=== PATIENT | male | born 1980 | race Caucasian/White ===

== ENCOUNTER 2022-10-25 14:56 | Emergency (ER) | payer MEDICARE, SELFPAY ==
[2022-10-25 15:05] VITALS: BP 130/97; PULSE 88; RESP 16; TEMP 37.1; O2SAT 98
--- NOTE | 2022-10-25 15:30 | DI.RAD_ITS ---
Exam(s) XR CLAVICLE RT XR SHOULDER RT COMPLETE 2+V EXAM: XR CLAVICLE RT CLINICAL HISTORY: fall, pain TECHNIQUE: 2D digital imaging was performed. COMPARISON: Two views of the clavicle. Five views of the shoulder. CR,XR XR SHOULDER RT COMPLETE 2 +V from 10/25/2022 FINDINGS: BONES: No acute fracture is present. No bony destructive lesion is seen. JOINTS: No dislocation present. AC joint not widened. SOFT TISSUE: Normal left. Lungs clear. No pneumothorax visible. IMPRESSION: Unremarkable radiographs of the right clavicle and right shoulder. DATA REPOSITORY: RADIATION DOSE DELIVERED:
--- NOTE | 2022-10-25 15:30 | DI.RAD_ITS ---
Exam(s) XR ELBOW RT COMPLETE EXAM: XR ELBOW RT COMPLETE CLINICAL HISTORY: fall pain. TECHNIQUE: 2D digital imaging was performed. Three views. COMPARISON: No exams were available for comparison FINDINGS: BONES: No acute fracture is present. No bony destructive lesion is seen. JOINTS: The elbow is normally aligned. No joint effusion is seen. SOFT TISSUE: Posterior soft tissue swelling. IMPRESSION: Unremarkable radiographs of the right elbow. DATA REPOSITORY: RADIATION DOSE DELIVERED:
--- NOTE | 2022-10-25 15:42 | ED.GENADUL_ITS ---
Discharge Plan Disposition Patient Disposition: Home Condition: Stable Discharge Details Chief Complaint: Orthopedic Clinical Impression: Right shoulder injury, Injury of elbow Primary Care Provider: Unknown,Unknown ED Provider: Zach Samaniego Home Meds and New Rx's Prescriptions: No Action divalproex [Depakote] 500 mg Tablet,Delayed Release (Dr/Ec) 1,500 mg PO BID hydroxyzine HCl 50 mg Tablet 50 mg PO HS Discharge Instructions Instructions: Shoulder Pain (ED) Additional Instructions: Please follow-up with orthopedic team. Please return to the emergency department for any worsening symptoms Medical Decision Making 42-year-old male presents 2 days after injuring right shoulder and elbow while playing with his nephew. Neurovascular exam of limb intact. No external signs of trauma. Range of motion at shoulder and elbow intact. High clinical suspicion for sprain versus strain versus partial rotator cuff tear low suspicion for dislocation or fracture however given level of discomfort will obtain x-rays of elbow shoulder and clavicle. Trial of analgesia anti- inflammatory. Likely will be given orthopedic follow-up 17: 01 x-rays unremarkable. Patient rest comfortably no acute distress. Will give patient close follow-up with orthopedic team in the coming weeks. Home care instructions and return precautions given HPI General Date/Time Provider Initiated Documentation: 10/25/22 15:21 . HPI Narrative: 42-year-old male history of remote right shoulder/clavicle injury presents after injuring right shoulder while playing with his nephew 2 days ago. Fell slowly backwards in a playful manner onto his right elbow and right shoulder has had right elbow and right shoulder pain since then. Related Data Home Medications Medication Instructions Recorded Confirmed divalproex 500 mg tablet,delayed 1,500 mg PO BID 10/25/22 10/25/22 release (Depakote) hydroxyzine HCl 50 mg tablet 50 mg PO HS 10/25/22 10/25/22 Allergies Allergy/AdvReac Type Severity Reaction Status Date / Time No Known Allergies Allergy Unverified 10/25/22 15:14 General Stated Complaint: Orthopedic MARVEL: 4 Review of Systems Narrative: Review of Systems Constitutional: negative Eyes: negative ENT: negative Cardiovascular: negative Respiratory: negative Gastrointestinal: negative : negative Musculoskeletal: Arm pain Skin: negative Neurologic: negative Psych: negative PFSH All Active Problems (Updated 10/25/22 @ 17:03 by Zach Samaniego MD) Right shoulder injury (Acute) Injury of elbow (Acute) Social History Smoking/Tobacco Use Status: Current every day Smoking risk assessment performed?: Yes Alcohol Intake: current Alcohol Intake frequency: a few times a month Drug use: Occasionally Substance use type: marijuana Do you feel safe at home: Yes Do you feel safe in your relationship?: Yes Exam Narrative Exam Narrative: Physical Examination General: alert, awake, cooperative, resting comfortably, no acute distress HEENT: normocephalic, atraumatic; PERRL, EOM intact, conjunctiva normal; no nasal discharge; moist mucous membranes, oral and pharyngeal mucosa normal, tolerating secretions Neck: supple, trachea midline; full ROM Chest: normal to inspection Skin: no lesions, rashes or trauma appreciated Neuro: AAOx3, normal speech, moving all extremities Extremities: No external signs of deformity to right upper extremity, internal/external rotation of shoulder intact, flexion extension at elbow intact, warm well perfused extremity sensate, no step-off or crepitus, normal palpation of clavicle Psych: Appropriate mood and affect Course Vital Signs Vital signs: Vital Signs Temperature 37.1 C 10/25/22 15:05 Pulse 88 10/25/22 15:05 Respiratory Rate 16 10/25/22 15:05 Blood Pressure 130/97 H 10/25/22 15:05 Pulse Oximetry 98 10/25/22 15:05 Temperature 37.1 C 10/25/22 15:05 Temperature Source Skin 10/25/22 15:05 Pulse 88 10/25/22 15:05 Respiratory Rate 16 10/25/22 15:05 Respiratory Effort Non-Labored 10/25/22 15:17 Blood Pressure 130/97 H 10/25/22 15:05 Blood Pressure Position Sitting 10/25/22 15:05 Pulse Oximetry 98 10/25/22 15:05 Oxygen Delivery Method Room Air 10/25/22 15:05 Oxygen Flow Rate 0 10/25/22 15:05 Pain Level 7 10/25/22 15:05 PAWSS Have you Been Recently Intoxicated or Drunk Within the Last 30 days?: No Have you Ever Experienced Previous Episodes of Alcohol Withdrawal?: No Have you ever Experienced Withdrawal Seizures?: No Have you ever Experienced Delirium Tremens(DT)s?: No Have you ever undergone Alcohol Rehabilitation Treatment (i.e, inpt ot outpatient treatment programs)?: No Have you ever Experienced Blackouts?: No Have you ever Combined Alcohol with other Downers within the last 90 days?: No Have you ever Combined Alcohol with any other Substance of Abuse during the last 90 days?: No Positive Blood Alcohol level on Presentation? [PCS.BAL]: No Evidence of Increased Autonomic Activity (i.e. HR>120, tremor, sweating, agitation, nausea)?: No Result: 0
[2022-10-25] MEDS: Ketorolac 15 MG/ML VIAL IM (15:56)
--- NOTE | 2022-10-25 16:35 | DI.VRAD_ITS ---
PROCEDURE INFORMATION: Exam: XR Right Elbow Exam date and time: 10/25/2022 4:12 PM Age: 42 years old Clinical indication: Injury or trauma; Fall; Blunt trauma (contusions or hematomas); Elbow; Right TECHNIQUE: Imaging protocol: Radiologic exam of the right elbow. Views: 3 or more views. COMPARISON: CR XR SHOULDER RT COMPLETE 2+V 10/25/2022 4:08 PM FINDINGS: Bones/joints: Normal. Soft tissues: Normal. IMPRESSION: No acute findings. Dictated and Authenticated by: Kirill Cuenca MD. Ordering:JESSA Serrano MD
--- NOTE | 2022-10-25 16:36 | DI.VRAD_ITS ---
PROCEDURE INFORMATION: Exam: XR Right Clavicle, Complete Exam date and time: 10/25/2022 4:07 PM Age: 42 years old Clinical indication: Injury or trauma; Fall; Sprain or strain; Elbow; Right TECHNIQUE: Imaging protocol: Radiologic exam of the right clavicle. Complete exam. Views: Any number of views. COMPARISON: No relevant prior studies available. FINDINGS: Bones/joints: Normal. Soft tissues: Unremarkable. IMPRESSION: No acute findings. Dictated and Authenticated by: Kirill Cuenca MD. Ordering:JESSA Serrano MD
--- NOTE | 2022-10-25 16:36 | DI.VRAD_ITS ---
PROCEDURE INFORMATION: Exam: XR Right Shoulder Exam date and time: 10/25/2022 4:08 PM Age: 42 years old Clinical indication: Injury or trauma; Fall; Blunt trauma (contusions or hematomas); Shoulder; Right TECHNIQUE: Imaging protocol: Radiologic exam of the right shoulder. Views: 2 or more views. COMPARISON: CR XR CLAVICLE RT 10/25/2022 4:07 PM FINDINGS: Bones/joints: Normal. Soft tissues: Unremarkable. IMPRESSION: No acute findings. Dictated and Authenticated by: Kirill Cuenca MD. Ordering:JESSA Serrano MD
== END 2022-10-25 17:26 | disposition home or self-care (01) ==
PROVIDERS: Emergency Provider Emergency Medicine; PCP Hospitalist
DX: S49.81XA Other specified injuries of right shoulder and upper arm, initial encounter (principal); S59.801A Other specified injuries of right elbow, initial encounter; W19.XXXA Unspecified fall, initial encounter
CPT/HCPCS: 96372; 99284; 73000; 73030; 73080; 99283; J1885

== ENCOUNTER 2022-10-27 12:48 | Emergency (ER) | payer MEDICARE, SELFPAY ==
[2022-10-27 13:10] VITALS: BP 134/84; PULSE 69; RESP 14; TEMP 36.8; O2SAT 98
--- NOTE | 2022-10-27 14:03 | W.ED.GENAD ---
Discharge Plan Disposition Patient Disposition: Home Condition: Stable Discharge Details Clinical Impression: Depression Primary Care Provider: [facility] Provider: Zach Samaniego Home Meds and New Rx's Prescriptions: New divalproex 250 mg tablet,delayed release (DR/EC) 250 mg PO BID Qty: 60 0RF escitalopram oxalate 5 mg tablet 5 mg PO DAILY Qty: 30 0RF hydroxyzine HCl 25 mg tablet 25 mg PO QHS Qty: 30 0RF olanzapine 7.5 mg tablet 7.5 mg PO DAILY Qty: 30 0RF No Action olanzapine 7.5 mg Tablet 7.5 mg PO DAILY escitalopram oxalate 5 mg Tablet 5 mg PO DAILY divalproex [Depakote] 500 mg Tablet,Delayed Release (Dr/Ec) 250 mg PO BID hydroxyzine HCl 50 mg Tablet 25 mg PO HS Discharge Instructions Instructions: Depression (ED) Additional Instructions: Please follow-up closely with [facility] human services resources. If you are not having worsening or uncontrolled symptoms please return to the emergency department for further care Medical Decision Making 42-year-old male history of depression anxiety presents with worsening depression and anxiety over the past several weeks to months, in the setting of not having access to his medications. Recently moved here from [place] is staying with family. Feels safe. Denies SI or HI. No evidence of intoxication or trauma or infectious process. Hemodynamically stable. Offered patient counseling with [facility] services while he is here in the emergency department however he would feel more comfortable following up as an outpatient. We will arrange services. Given strict return precautions for any worsening symptoms. HPI General Date/Time Provider Initiated Documentation: 10/27/22 13:55. HPI Narrative: 42-year-old male history of depression, anxiety, presents with worsening depression and anxiety over the last several weeks, has been without his medications over the last month since he moved from [place]. Denies active suicidal or homicidal thoughts. Feels safe currently and is staying with family. Related Data Home Medications Medication Instructions Recorded Confirmed divalproex 500 mg tablet,delayed 250 mg PO BID 10/25/22 10/27/22 release (Depakote) hydroxyzine HCl 50 mg tablet 25 mg PO HS 10/25/22 10/27/22 divalproex 250 mg tablet,delayed 250 mg PO BID #60 tabs 10/27/22 release escitalopram oxalate 5 mg tablet 5 mg PO DAILY 10/27/22 10/27/22 escitalopram oxalate 5 mg tablet 5 mg PO DAILY #30 tabs 10/27/22 hydroxyzine HCl 25 mg tablet 25 mg PO QHS #30 tabs 10/27/22 olanzapine 7.5 mg tablet 7.5 mg PO DAILY 10/27/22 10/27/22 olanzapine 7.5 mg tablet 7.5 mg PO DAILY #30 tabs 10/27/22 Previous Rx's Medication Instructions Recorded divalproex 250 mg tablet,delayed 250 mg PO BID #60 tabs 10/27/22 release escitalopram oxalate 5 mg tablet 5 mg PO DAILY #30 tabs 10/27/22 hydroxyzine HCl 25 mg tablet 25 mg PO QHS #30 tabs 10/27/22 olanzapine 7.5 mg tablet 7.5 mg PO DAILY #30 tabs 10/27/22 Allergies Allergy/AdvReac Type Severity Reaction Status Date / Time No Known Allergies Allergy Unverified 10/27/22 13:14 General Stated Complaint: RX Refill MARVEL: 4 Review of Systems Narrative: Review of Systems Constitutional: negative Eyes: negative ENT: negative Cardiovascular: negative Respiratory: negative Gastrointestinal: negative : negative Musculoskeletal: negative Skin: negative Neurologic: negative Psych: Depression, anxiety PFSH All Active Problems (Updated 10/27/22 @ 14:07 by Zach Samaniego MD) Right shoulder injury (Acute) Injury of elbow (Acute) Depression (Chronic) Social History Smoking/Tobacco Use Status: Current every day Tobacco Type: cigarettes Smoking risk assessment performed?: Yes Alcohol Intake: current Alcohol Intake frequency: a few times a month Drug use: Occasionally Substance use type: marijuana Do you feel safe at home: Yes Do you feel safe in your relationship?: Yes Exam Narrative Exam Narrative: Physical Examination General: alert, awake, cooperative, resting comfortably, no acute distress Neuro: AAOx3, normal speech, moving all extremities Psych: Depression, anxiety, no HI no SI Course Vital Signs Vital signs: Vital Signs Temperature 36.8 C 10/27/22 13:10 Pulse 69 10/27/22 13:10 Respiratory Rate 14 10/27/22 13:10 Blood Pressure 134/84 10/27/22 13:10 Pulse Oximetry 98 10/27/22 13:10 Temperature 36.8 C 10/27/22 13:10 Temperature Source Temporal Artery Scan 10/27/22 13:10 Pulse 69 10/27/22 13:10 Respiratory Rate 14 10/27/22 13:10 Respiratory Effort Normal 10/27/22 13:13 Blood Pressure 134/84 10/27/22 13:10 Blood Pressure Position Sitting 10/27/22 13:10 Pulse Oximetry 98 10/27/22 13:10 Oxygen Delivery Method Room Air 10/27/22 13:10 Oxygen Flow Rate 0 10/27/22 13:10 Pain Level 0 10/27/22 13:10
[2022-10-27] MEDS: Divalproex 250 MG TABEC PO (14:59)
[2022-10-27] MEDS: Escitalopram 10 MG TAB 5 MG PO (14:59)
[2022-10-27] MEDS: hydrOXYzine HCL 25 MG TAB PO (14:59)
--- NOTE | 2022-10-28 12:06 | PDOC.MHCN ---
Date of service: 10/27/22 Time of Service: 12:06 PHQ-9 Over the last 2 weeks, how often have you been bothered by any of the following problems? 1. Little interest or pleasure in doing things: several days 2. Feeling down, depressed, or hopeless: nearly every day 3. Trouble falling or staying asleep, or sleeping too much: several days 4. Feeling tired or having little energy: not at all 5. Poor appetite or overeating: not at all 6. Feeling bad about yourself - or that you are a failure or have let yourself and your family down: several days 7. Trouble concentrating on things, such as reading the newspaper or watching television: not at all 8. Moving or speaking so slowly that other people could have noticed? - Or the opposite - being so fidgety or restless that you have been moving around a lot more than usual: several days 9. Thoughts that you would be better off or of hurting yourself in some way: several days Total score: 8 If you checked off any problems, how difficult have these problems made it for you to do your work, take care of things at home, or get along with other people?: not difficult at all Source: Developed by Drs. Edward Valladares, Smiley Clark, See Jones and colleagues, with an educational sarah from [email or web address]. Suicide Severity Rate CSSRS Have you wished you were or wished you could go to sleep and not wake up?: Yes Have you actually had any thoughts of killing yourself?: No CSSRS3 Have you ever done anything, started to do anything or prepared to do anything to end your life?: Yes CSSRS4 Was this within the past three months?: No Screening Score Total Score: 4 Screening: Positive Mental Health Emergency Note Release [facility] release signed:: Yes Reason for Visit ES was requested to do an assessment and support client by [facility]. This clinician went to [facility] to meet with the client face to face. [facility] reported that the client is not endorsing SI or HI but is tearful and mat need some extra support In the last 2 weeks has the pt presented for ES prior to today?: Yes, presented at [facility] ED Client Information Client is: New Well Housed: Yes Non Suicidal Self Injury Current: No History: No Safety Risk/Harm to Self or Others Current Ideation to Harm Self or Others: No Risk: Does risk to harm exist?: No Risk: Low Risk Duty to warn indicated: No Asssessment/Mental Status Appearance: Disheveled Attitude: Cooperative Behavior: Unremarkable Speech: Soft Affect: Flat and Cogruent with mood Mood: Sad, Depressed and Anxious Thought process: Goal directed (I want to get my MH better before I turn myself in to police. ) Hallucinations: No Delusions: No Attention: Unremarkable Perception: Not impaired Orientation: Fully orientated Memory: Intact Insight: Good Judgement: Good Neurovegetative Symptoms Sleep: Decrease Appetitie: No change Interests: Decrease Energy: Decrease Libido: Not applicable Substance Use: Do you use nicotine?: Yes Have you used substances in the last 7 days?: yes, THC daily Additional Issues: Assaultive/Threatening Behavior: No Medical Concerns: No Client engaged in active self harm w/weapon: No Threatening to run away: No Child reported abuse/neglect: No Voluntarily presenting for services: Yes Domestic violence is a concern: No Extreme Psychosis or extreme behavior is present: No Impression Client is a 42 year old, Single, male how resides with his mother in [facility]. He is disabled and does not have any professional supports. He did report that he has a paper at home to get into a PCP office however, had to date not filled it in as of yet. Client presents with symptoms as identified above that are consistent with a MDD. He is reported to have been on and off tearful about his current situation. Client would benefit from having services closer to where he lives and this clinician will help support him in doing this as long as he calls with the PCP office information on 10.28.22 and calls will be made. Resources Reosurces reviewed and given:: Other Plan/Disposition Recommended Disposition: PCP/Office visit. Plan: Client was given [facility] card to call on 10.28.22 with PCP information and to give verbal consent to speak. ER provider, Dr. Samaniego will proscribe one month of meds to hold him over. Person reported agreement to plan: Yes Reports/communication Outcome discussed with: ED/Personnel
== END 2022-10-27 16:24 | disposition home or self-care (01) ==
PROVIDERS: Emergency Provider Emergency Medicine
DX: F43.23 Adjustment disorder with mixed anxiety and depressed mood
CPT/HCPCS: 99283; 99284

== ENCOUNTER 2022-11-15 13:34 | Emergency (ER) | payer MEDICARE, SELFPAY ==
[2022-11-15 13:40] VITALS: BP 141/84; PULSE 57; RESP 14; TEMP 36.6; O2SAT 97
--- NOTE | 2022-11-15 13:56 | ED.GENADUL_ITS ---
Discharge Plan Disposition Patient Disposition: Home Discharge Details Clinical Impression: Medication refill Primary Care Provider: None,None ED Provider: Praful Ayers Home Meds and New Rx's Prescriptions: New divalproex [Depakote] 250 mg tablet,delayed release (DR/EC) 750 mg PO BID 30 Days Qty: 180 1RF Continued hydroxyzine HCl 50 mg Tablet 25 mg PO HS Qty: 30 1RF olanzapine 7.5 mg tablet 7.5 mg PO DAILY Qty: 30 0RF escitalopram oxalate 5 mg tablet 5 mg PO DAILY Qty: 30 0RF Discontinued divalproex 250 mg tablet,delayed release (DR/EC) 250 mg PO BID Qty: 60 0RF divalproex [Depakote] 500 mg Tablet,Delayed Release (Dr/Ec) 250 mg PO BID Discharge Instructions Instructions: Divalproex (By mouth) Additional Instructions: You were seen in the emergency department requesting a medication refill. We have requested this for you. You should continue to reach out with the resources provided to get set up with a primary care doctor soon as possible to help with medication refills. We sent a Depakote level for you and refilled your prescriptions. Follow-up with your new primary care doctor regarding your Depakote level to see if they need to make adjustments to your medications. Return here for any symptoms or any thoughts of hurting yourself or anyone else. Discharge Data Discharge Physician: Praful Ayers Medical Decision Making This is a 42-year-old male who presents requesting medication refill. Had the meds filled for him a few weeks ago but has been taking 3 times the prescribed dose of Depakote as he says he is on 750 mg twice a day and not the 250 mg twice a day that was prescribed to him. He is requesting I refill these for him now. Says he has not been able to get in with a primary care doctor. We filled out the paperwork for him here at the request of the primary care doctor. He is agreeable to getting a Depakote level checked here as he should have it checked as it sounds like he was only on it for a couple months before he came here and I do not have any documentation of any levels. He is adamant he was on the 750 mg twice a day for many months. We will send the level so that his primary care doctor has something to further follow-up when he does get in with 1. We will refill his prescriptions here. Offered to let him see the crisis team here but he would like to leave. No role to stay for lab results as the Depakote level will take some time and will not international exchange coordinator presently. We will refill his prescriptions and discharge with return precautions. Medical Records Medical records reviewed: Yes I reviewed the patient's medical records. Lab Data Lab results reviewed: Yes I reviewed the patient's lab results. HPI General Date/Time Provider Initiated Documentation: 11/15/22 13:45 . Limitations to Documentation: no limitations . Information obtained by: patient . HPI Narrative: 42-year-old gentleman presents with request for medication refill. He was here a few weeks ago and given his home medications prescribed to him as he had gotten a primary care doctor in the area recently. He is on Depakote, escitalopram, hydroxyzine, and olanzapine. He says he was not sure of his initial dose the last time he was here and they had prescribed him 250 mg twice a day. He says he is actually on 750 mg twice a day so he has been taking 3 of those pills twice a day over the last few weeks but now has run out of the medication. Says he has not been able to get in with primary care though he filled out all the forms. He is denying any complaints. No hallucinations or delusions or any suicidal thoughts. No homicidal thoughts and no thoughts of hurting himself or anyone else. Denies drug or alcohol use. Related Data Home Medications Medication Instructions Recorded Confirmed divalproex 250 mg tablet,delayed 750 mg PO BID 30 days #180 tabs 11/15/22 release (Depakote) escitalopram oxalate 5 mg tablet 5 mg PO DAILY #30 tabs 11/15/22 hydroxyzine HCl 50 mg tablet 25 mg PO HS #30 tabs 11/15/22 olanzapine 7.5 mg tablet 7.5 mg PO DAILY #30 tabs 11/15/22 Previous Rx's Medication Instructions Recorded divalproex 250 mg tablet,delayed 750 mg PO BID 30 days #180 tabs 11/15/22 release (Depakote) escitalopram oxalate 5 mg tablet 5 mg PO DAILY #30 tabs 11/15/22 hydroxyzine HCl 50 mg tablet 25 mg PO HS #30 tabs 11/15/22 olanzapine 7.5 mg tablet 7.5 mg PO DAILY #30 tabs 11/15/22 Allergies Allergy/AdvReac Type Severity Reaction Status Date / Time No Known Allergies Allergy Unverified 11/15/22 13:43 General Stated Complaint: RX Refill MARVEL: 5 Review of Systems Constitutional Constitutional: Denies chills, Denies fever(s) and Denies headache(s) Eyes Eyes: Denies change in vision ENT Ears, Nose, Mouth, and Throat: Denies headache(s) and Denies odynophagia Cardiovascular Cardiovascular: Denies chest pain and Denies dyspnea Respiratory Respiratory: Denies dyspnea Gastrointestinal Gastrointestinal: Denies abdominal pain, Denies diarrhea, Denies nausea, Denies odynophagia and Denies vomiting Genitourinary Genitourinary: Denies dysuria Musculoskeletal Musculoskeletal: Denies myalgias Integumentary/Breasts Skin/Breast: Denies changing lesions Neurologic Neurologic: Denies behavioral changes and Denies headache(s) Psychiatric Psychiatric: Denies behavioral changes Endocrine Endocrine: Denies heat intolerance Hematologic/Lymphatic Hematologic/Lymphatic: Denies lymphadenopathy PFSH All Active Problems (Updated 11/15/22 @ 14:02 by Praful Ayers MD) Right shoulder injury (Acute) Injury of elbow (Acute) Depression (Chronic) Medication refill (Acute) Social History Smoking/Tobacco Use Status: Current every day Tobacco Type: cigarettes Smoking risk assessment performed?: Yes Alcohol Intake: current Alcohol Intake frequency: a few times a month Drug use: Occasionally Substance use type: marijuana Do you feel safe at home: Yes Do you feel safe in your relationship?: Yes Exam Const General: cooperative Nutritional Appearance: average body habitus Orientation: alert, awake and oriented x3 HENMT Head: normal to inspection Ears: external ears normal Mouth: moist mucous membranes Eyes Pupils: PERRL EOM: EOM intact bilaterally and No nystagmus Neck Neck: full ROM and no tracheal deviation Chest Chest: normal inspection of the chest Resp Auscultation: clear to auscultation bilaterally Cardio Rate: regular rate Rhythm: regular rhythm GI Inspection: normal to inspection Palpation: soft, no guarding, not rigid and nontender Back/Spine/Pelvis Back: No no CVA tenderness Thoracic/Lumbar Spine: thoracic and lumbar spine normal to inspection Skin General skin exam: no rashes or lesions noted Neuro General: patient alert, patient awake and patient oriented x3 Cranial Nerves: CN's II-XI intact bilaterally, PERRL and no nystagmus Cognition: normal cognition Motor: muscle tone normal throughout and strength 5/5 throughout Sensory Exam: no sensory deficits noted Extrem General: normal to inspection Course Vital Signs Vital signs: Vital Signs Temperature 36.6 C 11/15/22 13:40 Pulse 57 L 11/15/22 13:40 Respiratory Rate 14 11/15/22 13:40 Blood Pressure 141/84 H 11/15/22 13:40 Pulse Oximetry 97 11/15/22 13:40 Temperature 36.6 C 11/15/22 13:40 Temperature Source Tympanic 11/15/22 13:40 Pulse 57 L 11/15/22 13:40 Respiratory Rate 14 11/15/22 13:40 Respiratory Effort Normal, Non-Labored 11/15/22 13:44 Blood Pressure 141/84 H 11/15/22 13:40 Blood Pressure Position Sitting 11/15/22 13:40 Pulse Oximetry 97 11/15/22 13:40 Oxygen Delivery Method Room Air 11/15/22 13:40 Oxygen Flow Rate 0 11/15/22 13:40 Pain Level 0 11/15/22 13:40 PAWSS Have you Been Recently Intoxicated or Drunk Within the Last 30 days?: No Have you Ever Experienced Previous Episodes of Alcohol Withdrawal?: No Have you ever Experienced Withdrawal Seizures?: No Have you ever Experienced Delirium Tremens(DT)s?: No Have you ever undergone Alcohol Rehabilitation Treatment (i.e, inpt ot outpatient treatment programs)?: No Have you ever Experienced Blackouts?: No Have you ever Combined Alcohol with other Downers within the last 90 days?: No Have you ever Combined Alcohol with any other Substance of Abuse during the last 90 days?: No Positive Blood Alcohol level on Presentation? [PCS.BAL]: No Evidence of Increased Autonomic Activity (i.e. HR>120, tremor, sweating, agitation, nausea)?: No Result: 0
[2022-11-15 14:16] LABS: Abs Immature Grans 0.04 10^3/uL (0.0-0.06); Absolute Basophil Count 0.07 10^3/uL (0.0-0.2); Absolute Eosinophil Count 0.17 10^3/uL (0.0-0.7); Absolute Neutrophil Count 4.38 10^3/uL (1.2-6.7); Basophils % 0.9; Eosinophils % 2.2; HCT 46.2 % (40.0-50.0); HGB 15.8 g/dL (13.5-17.5); Immature Grans % 0.5; Lymphocytes % 29.1; MCH 30.6 pg (27.0-33.0); MCHC 34.2 % (32.0-36.0); MCV 90 fL (80-95); MPV 11.2 fL (8.0-11.0); Monocytes % 9.3; Platelet Count 219 10^3/uL (130-400); RBC 5.16 10^6/uL (4.36-5.78); RDW 12.5 % (11.8-14.1); RDW-SD 41.3 fL; WBC 7.56 10^3/uL (4.4-10.8)
--- NOTE | 2022-11-15 14:19 | NUR.NOTE ---
Nursing Note: Sent referral to case management to help patient obtain a PCP at [facility] in [place]. Patient stated to the nurse that he had filed paperwork at [facility] however nobody has reached out to him.
[2022-11-15 14:33] LABS: ALT 20 U/L (16-63); AST 14 U/L (15-37); Albumin 3.9 g/dL (3.4-5.0); Alkaline Phosphatase 95 U/L (46-116); Anion Gap 9.8 mmol/L (3-11); BUN 16 mg/dL (7-18); Bilirubin, Total 0.3 mg/dL (0.2-1.0); CO2 25.2 mmol/L (21.0-32.0); CREATININE 0.9 mg/dL (0.70-1.30); Calcium 8.5 mg/dL (8.5-10.1); Chloride 102 mmol/L (98-107); Estimated GFR 110.73 (mL/min/1.73m2); Glucose 99 mg/dL (74-106); Potassium 4.2 mmol/L (3.5-5.1); Sodium 137 mmol/L (136-145); Total Protein 7.7 g/dL (6.4-8.2)
[2022-11-15 14:36] LABS: VALPROIC ACID < 3 ug/mL
== END 2022-11-15 14:25 | disposition home or self-care (01) ==
PROVIDERS: Emergency Provider Student in an Organized Health Care Education/Training Program
DX: F41.9 Anxiety disorder, unspecified (principal); F32.A Depression, unspecified; Z76.0 Encounter for issue of repeat prescription
CPT/HCPCS: 36415; 80053; 99283; 80164; 85025

== ENCOUNTER 2022-12-28 16:30 | Emergency (ER) | payer MEDICARE, SELFPAY ==
[2022-12-28 16:35] VITALS: BP 136/85; PULSE 65; RESP 18; TEMP 36.8; O2SAT 98
--- NOTE | 2022-12-28 18:14 | W.ED.GENAD ---
Discharge Plan Disposition Patient Disposition: Home Discharge Details Clinical Impression: Depression, Anxiety, Encounter for medication refill Primary Care Provider: None,None ED Provider: Ant Henning Home Meds and New Rx's Prescriptions: Continued divalproex [Depakote] 250 mg tablet,delayed release (DR/EC) 750 mg PO BID 30 Days Qty: 180 1RF hydroxyzine HCl 50 mg Tablet 25 mg PO HS Qty: 30 1RF olanzapine 7.5 mg tablet 7.5 mg PO DAILY Qty: 30 1RF escitalopram oxalate 5 mg tablet 5 mg PO DAILY Qty: 30 1RF Discharge Instructions Instructions: Depression (ED), Anxiety (ED) Additional Instructions: We have refilled your meds and put in for a primary care request to establish new primary care provider to better take care of your medication needs for your bipolar depression and anxiety. If you have any significant worsening of your condition please return to the emergency department immediately for reassessment. Otherwise please follow-up with primary care provider and [facility] as discussed Referrals: [facility] [Outside] - 1 day (For further discussion of care bed) Primary Care Provider [Outside] - 2 weeks Medical Decision Making Patient presenting to the emergency department for chief complaint of medication refill request. He states he has been off of his psychiatric medications for the last 2 weeks due to multiple social situations and now is having a hard time sleeping, increased anxiety, and depression. He does state that he has been taking his Depakote and took last dose this morning but all of his other medications he is out of. Patient denies any medical symptoms but states he is does not have a primary care provider or psychiatric provider. He states history of anxiety depression and bipolar with multiple hospitalizations in the past. Physical exam is unremarkable beyond noted agitated anxious patient that does appear sad and depressed. Given that patient is not connected to any resources currently will contact mental health to connect patient with resources sooner than later and attempts to reduce potential for psychiatric inpatient need. Informed patient that I was happy to refill his psychiatric medications as he has presented with the bottles and I am not concerned for abuse of medications and will place patient on primary care list to follow-up for further medical management. Given patient's history after mental health evaluation patient will do 24-hour checking as he is considering potentially going to the care bed. We will represcribe patient's medications and will have him return to the emergency department for any new or significant worsening of condition. After discussion of diagnosis and plan of care patient has no further needs, questions, or concerns and states clear understanding to return to the emergency department for any worsening symptoms. HPI General Mode of arrival: ambulatory. Date/Time Provider Initiated Documentation: 12/28/22 16:31. Limitations to Documentation: no limitations. Information obtained by: patient and RN notes reviewed. History of Present Illness 42 year old M presents to the emergency department with the chief complaint of Patient requesting medication refill, Patient started experiencing this week(s) (2) Patient did receive the following treatments prior to arrival, none Related Data Home Medications Medication Instructions Recorded Confirmed divalproex 250 mg tablet,delayed 750 mg PO BID 30 days #180 tabs 12/28/22 release (Depakote) escitalopram oxalate 5 mg tablet 5 mg PO DAILY #30 tabs 12/28/22 hydroxyzine HCl 50 mg tablet 25 mg PO HS #30 tabs 12/28/22 olanzapine 7.5 mg tablet 7.5 mg PO DAILY #30 tabs 12/28/22 Previous Rx's Medication Instructions Recorded divalproex 250 mg tablet,delayed 750 mg PO BID 30 days #180 tabs 12/28/22 release (Depakote) escitalopram oxalate 5 mg tablet 5 mg PO DAILY #30 tabs 12/28/22 hydroxyzine HCl 50 mg tablet 25 mg PO HS #30 tabs 12/28/22 olanzapine 7.5 mg tablet 7.5 mg PO DAILY #30 tabs 12/28/22 Allergies Allergy/AdvReac Type Severity Reaction Status Date / Time No Known Allergies Allergy Unverified 11/15/22 13:43 General Stated Complaint: RX Refill MARVEL: 5 Review of Systems Constitutional Constitutional: Denies chills and Denies fever(s) Cardiovascular Cardiovascular: Denies chest pain and Denies dyspnea Respiratory Respiratory: Denies dyspnea Gastrointestinal Gastrointestinal: Denies abdominal pain, Denies nausea and Denies vomiting Psychiatric Psychiatric: Reports as per HPI, Reports abnormal sleep pattern, Reports anxiety, Reports depression, Reports irritability, Reports panic attacks, Denies homicidal ideation and Denies suicidal ideation PFSH All Active Problems (Updated 12/28/22 @ 19:08 by Ant Henning NP) Encounter for medication refill (Acute) Bipolar 2 disorder (Acute) Depression (Chronic) Anxiety (Chronic) Social History Smoking/Tobacco Use Status: Current every day Tobacco Type: cigarettes Smoking risk assessment performed?: Yes Alcohol Intake: current Alcohol Intake frequency: a few times a month Drug use: Occasionally Substance use type: marijuana Do you feel safe at home: Yes Do you feel safe in your relationship?: Yes Exam Const General: cooperative, no acute distress and not ill appearing Orientation: alert, awake and oriented x3 HENMT Mouth: moist mucous membranes Resp Effort & Inspection: normal respiratory effort, able to speak in complete sentences and no respiratory distress Auscultation: clear to auscultation bilaterally Cardio Rate: regular rate Rhythm: regular rhythm Heart Sounds: S1 normal and S2 normal Skin General skin exam: no rashes or lesions noted Neuro General: patient alert, patient awake, patient oriented x3, moves all extremities and no focal motor deficits Sensory Exam: no sensory deficits noted Psych Appearance: grossly normal Mental Status: mental status grossly normal Speech and Movement: restless Mood: anxious mood Affect: sad and anxious affect Attitude: cooperative Thought Content: no delusions, no hallucinations, no homicidality, phobias and suicidality Course Vital Signs Vital signs: Vital Signs Temperature 36.8 C 12/28/22 16:35 Pulse 65 12/28/22 16:35 Respiratory Rate 18 12/28/22 16:35 Blood Pressure 136/85 12/28/22 16:35 Pulse Oximetry 98 12/28/22 16:35 Temperature 36.8 C 12/28/22 16:35 Temperature Source Oral 12/28/22 16:35 Pulse 65 12/28/22 16:35 Respiratory Rate 18 12/28/22 16:35 Respiratory Effort Normal, Non-Labored 12/28/22 16:38 Blood Pressure 136/85 12/28/22 16:35 Blood Pressure Position Sitting 12/28/22 16:35 Pulse Oximetry 98 12/28/22 16:35 Oxygen Delivery Method Room Air 12/28/22 16:35 Oxygen Flow Rate 0 12/28/22 16:35
[2022-12-28] MEDS: hydrOXYzine HCL 25 MG TAB 50 MG PO (19:24)
--- NOTE | 2022-12-28 19:27 | NUR.NOTE ---
Pt placed on care management for F/U needed for new PCP for MED control and refill, Pt meds were refilled in the ED by Ed Dr Henning for depression, anxiety, and bipolar.
== END 2022-12-28 19:25 | disposition home or self-care (01) ==
PROVIDERS: Emergency Provider Nurse Practitioner Family
DX: F41.9 Anxiety disorder, unspecified (principal); F32.A Depression, unspecified; Z76.0 Encounter for issue of repeat prescription
CPT/HCPCS: 99283; 99284

== ENCOUNTER 2023-03-24 02:19 | Emergency (ER) | payer MEDICARE, SELFPAY ==
[2023-03-24] VITALS (14 sets, daily range): BP systolic 130–156; BP diastolic 85–98; PULSE 67–85; RESP 20–22; TEMP 36.4; O2SAT 93–100
--- NOTE | 2023-03-24 02:30 | DI.RAD_ITS ---
Exam(s) XR PORTABLE CHEST AP EXAM: XR PORTABLE CHEST AP CLINICAL HISTORY: cough TECHNIQUE: 2D digital imaging was performed. COMPARISON: No exams were available for comparison FINDINGS: LUNGS: Clear. No pleural abnormality seen. HEART: Normal size. AORTA: Normal diameter. BONES: Unremarkable for age. Soft tissues: Unremarkable. IMPRESSION: No acute findings. DATA REPOSITORY: RADIATION DOSE DELIVERED:
--- NOTE | 2023-03-24 02:31 | W.ED.GENAD ---
Discharge Plan Disposition Patient Disposition: Home Condition: Stable Discharge Details Clinical Impression: Viral illness, Subjective fever ED Provider: Adam Ayers Home Meds and New Rx's Prescriptions: Continued divalproex [Depakote] 250 mg tablet,delayed release (DR/EC) 750 mg PO BID 30 Days Qty: 180 0RF hydroxyzine HCl 50 mg Tablet 25 mg PO HS Qty: 30 0RF olanzapine 7.5 mg tablet 7.5 mg PO DAILY Qty: 30 0RF escitalopram oxalate 5 mg tablet 5 mg PO DAILY Qty: 30 0RF Discharge Instructions Instructions: Viral Syndrome (ED) Additional Instructions: I've placed you on the follow up list to try and get established with a primary care provider if you feel more ill, have worsening shortness of breath or severe abdominal pain return to the emergency department Medical Decision Making 42 yo male with hx of anxiety and bipolar who comes in with chief complaint of cough, body aches, n/v for 2 days. HE has also had subjective fevers though he hasn't checked his temp. HE denies chest pain, back pain, urinary symptoms. HE is caox4 on arrival. Clear lungs, no murmurs, soft nontender abdomen, full rom of the neck. No rashes, denies ivdu. Suspect uri vs flu vs covid, will check fluvid, cbc, cmp and proalacitonin along with lactate. He has no murmurs or other findings to suggest endocarditis. 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 Soft nontender abdomen so doubt pathology such as intraabdominal abscess and cholecystitis. No back pain and again denies ivdu so doubt spinal epidural abscess. pt feels better, stable vitals, no hypoxia, hr 80 bp 127/62. Labs reassuring against serious bacterial illness, fluvid negative, suspect viral uri. He is stable for d/c, xray on my read negative, vrad read estimate is 2 hours so do not feel he needs to stay for this. Will have him f/u with his pcp celia, return precautions given. PT denies si/hi and is caox4 with no signs of brinda at this time or other hallucinations. HE is requesting a refill of his meds until he can f/u with his pcp Differential Diagnosis Differential Diagnosis: covid, flu, pneumonia Medical Records Medical records reviewed: Yes I reviewed the patient's medical records. Imaging Data Radiologic Study: Attestation: I personally reviewed and interpreted this imaging study as follows: Imaging: X-Ray My impression: no acute findings Lab Data Lab results reviewed: Yes I reviewed the patient's lab results. HPI General Mode of arrival: EMS. Date/Time Provider Initiated Documentation: 03/24/23 02:25. Limitations to Documentation: no limitations. Information obtained by: patient. History of Present Illness 42 year old M presents to the emergency department with the chief complaint of n/v and body aches, described as moderate, Patient started experiencing this week(s) (2) and it has been constant and intermittent. No relieving factors improve symptom(s), No exacerbating factors reported . Patient notes denies chest pain, rash and syncope. Patient did receive the following treatments prior to arrival, none Related Data Home Medications Medication Instructions Recorded Confirmed divalproex 250 mg tablet,delayed 750 mg PO BID 30 days #180 tabs 03/24/23 release (Depakote) escitalopram oxalate 5 mg tablet 5 mg PO DAILY #30 tabs 03/24/23 hydroxyzine HCl 50 mg tablet 25 mg PO HS #30 tabs 03/24/23 olanzapine 7.5 mg tablet 7.5 mg PO DAILY #30 tabs 03/24/23 Previous Rx's Medication Instructions Recorded divalproex 250 mg tablet,delayed 750 mg PO BID 30 days #180 tabs 03/24/23 release (Depakote) escitalopram oxalate 5 mg tablet 5 mg PO DAILY #30 tabs 03/24/23 hydroxyzine HCl 50 mg tablet 25 mg PO HS #30 tabs 03/24/23 olanzapine 7.5 mg tablet 7.5 mg PO DAILY #30 tabs 03/24/23 Allergies Allergy/AdvReac Type Severity Reaction Status Date / Time No Known Allergies Allergy Unverified 11/15/22 13:43 General Stated Complaint: GenMedical MARVEL: 3 Review of Systems All systems reviewed & are unremarkable except as noted in HPI and below Constitutional Constitutional: Reports chills and Reports fever(s) (subjective) Cardiovascular Cardiovascular: Denies chest pain and Denies dyspnea Respiratory Respiratory: Reports cough and Denies dyspnea Gastrointestinal Gastrointestinal: Denies abdominal pain, Reports nausea and Reports vomiting Genitourinary Genitourinary: Denies dysuria Integumentary/Breasts Skin/Breast: Denies rash PFSH All Active Problems (Updated 03/24/23 @ 03:36 by Adam Ayers MD) Viral illness (Acute) Subjective fever (Acute) Bipolar 2 disorder (Acute) Depression (Chronic) Anxiety (Chronic) Social History Smoking/Tobacco Use Status: Current every day Tobacco Type: cigarettes Smoking risk assessment performed?: Yes Drug use: Occasionally Substance use type: marijuana Do you feel safe at home: Yes Do you feel safe in your relationship?: Yes Exam Const General: no acute distress Orientation: alert HENMT Head: normal to inspection Ears: external ears normal General nose exam: external nose normal Mouth: moist mucous membranes Eyes General: appearance normal, both eyes and all related structures Neck Neck: normal visual inspection Resp Effort & Inspection: normal respiratory effort and able to speak in complete sentences Auscultation: clear to auscultation bilaterally Cardio Rate: regular rate Heart Sounds: no murmurs GI Palpation: soft and nontender Skin General skin exam: no rashes or lesions noted Neuro General: patient alert and patient oriented x3 Extrem General: normal to inspection Psych Mental Status: mental status grossly normal Course Vital Signs Vital signs: Vital Signs Temperature 36.4 C 03/24/23 02:20 Pulse 85 03/24/23 02:20 Respiratory Rate 22 03/24/23 02:20 Blood Pressure 156/93 H 03/24/23 02:20 Pulse Oximetry 100 03/24/23 02:20 Temperature 36.4 C 03/24/23 02:20 Temperature Source Oral 03/24/23 02:20 Pulse 73 03/24/23 02:25 Respiratory Rate 20 03/24/23 02:25 Respiratory Effort Non-Labored 03/24/23 02:25 Respiratory Depth Normal 03/24/23 02:25 Respiratory Pattern Normal 03/24/23 02:25 Blood Pressure 156/93 H 03/24/23 02:25 Blood Pressure Position Sitting 03/24/23 02:25 Pulse Oximetry 99 03/24/23 02:25 Oxygen Delivery Method Room Air 03/24/23 02:25 Oxygen Flow Rate 0 03/24/23 02:20 Pain Level 8 03/24/23 02:25
[2023-03-24 02:33] LABS: Lactate 1.5 mmol/L (0.6-1.4)
[2023-03-24] MEDS: Normal Saline 1,000 ML 1000 ML IV (02:39)
[2023-03-24] MEDS: Ketorolac 15 MG/ML VIAL IVP (02:40)
[2023-03-24] MEDS: Prochlorperazine 10 MG/2 ML VIAL IVP (02:41)
[2023-03-24 02:51] LABS: Abs Immature Grans 0.04 10^3/uL (0.0-0.06); Absolute Basophil Count 0.05 10^3/uL (0.0-0.2); Absolute Eosinophil Count 0.06 10^3/uL (0.0-0.7); Absolute Lymphocyte Count 2.43 10^3/uL (1.2-3.4); Absolute Monocyte Count 0.57 10^3/uL (0.1-0.8); Absolute Neutrophil Count 7.62 10^3/uL (1.2-6.7); Basophils % 0.5; Eosinophils % 0.6; HCT 42.6 % (40.0-50.0); Immature Grans % 0.4; Lymphocytes % 22.6; MCH 30.5 pg (27.0-33.0); MCHC 35.2 % (32.0-36.0); MCV 87 fL (80-95); MPV 10.5 fL (8.0-11.0); Monocytes % 5.3; Neutrophils % 70.6; Platelet Count 341 10^3/uL (130-400); RBC 4.91 10^6/uL (4.36-5.78); RDW 12.9 % (11.8-14.1); RDW-SD 40.9 fL; WBC 10.77 10^3/uL (4.4-10.8)
[2023-03-24 02:53] LABS: ALT 21 U/L (16-63); AST 17 U/L (15-37); Albumin 4.1 g/dL (3.4-5.0); Alkaline Phosphatase 106 U/L (46-116); Anion Gap 11.1 mmol/L (3-11); BUN 9 mg/dL (7-18); Bilirubin, Total 0.3 mg/dL (0.2-1.0); CO2 22.9 mmol/L (21.0-32.0); CREATININE 0.9 mg/dL (0.70-1.30); Calcium 9.3 mg/dL (8.5-10.1); Chloride 103 mmol/L (98-107); Estimated GFR 110.73 (mL/min/1.73m2); Glucose 117 mg/dL (74-106); Magnesium 2.4 mg/dL (1.8-2.4); Potassium 3.9 mmol/L (3.5-5.1); Sodium 137 mmol/L (136-145); Total Protein 8.1 g/dL (6.4-8.2); VALPROIC ACID < 3 ug/mL
[2023-03-24 03:14] LABS: COVID-19 PCR Negative (Negative); Influenza A PCR Negative (Negative); Influenza B PCR Negative (Negative); RSV PCR Negative (Negative)
[2023-03-24 03:23] LABS: Procalcitonin < 0.1 ng/mL
[2023-03-24 03:24] LABS: Source Nasopharynx
--- NOTE | 2023-03-24 03:33 | NUR.NOTE ---
Pt placed on care management list to establish primary care.
--- NOTE | 2023-03-24 05:06 | DI.VRAD_ITS ---
PROCEDURE INFORMATION: Exam: XR Chest Exam date and time: 03/24/2023 2:55 AM Age: 42 years old Clinical indication: Cough TECHNIQUE: Imaging protocol: Radiologic exam of the chest. Views: 1 view. COMPARISON: No relevant prior studies for comparison. FINDINGS: Lungs: The lungs are clear and well aerated bilaterally. There is no consolidation, infiltrate, or pulmonary edema. The pulmonary vasculature is normal in caliber. Pleural spaces: Unremarkable. No pleural effusion or pneumothorax. Heart/Mediastinum: Heart size and cardiomediastinal contours are normal. Bones/joints: Unremarkable. IMPRESSION: No active disease in the chest. Dictated and Authenticated by: Laila Garay MD. Ordering:DESHAWN Medina MD
== END 2023-03-24 03:51 | disposition home or self-care (01) ==
LOC: ER 03:55
PROVIDERS: Emergency Provider Emergency Medicine
DX: B34.9 Viral infection, unspecified (principal); F41.9 Anxiety disorder, unspecified; F31.9 Bipolar disorder, unspecified; F17.210 Nicotine dependence, cigarettes, uncomplicated; Z20.822 Contact with and (suspected) exposure to COVID-19
CPT/HCPCS: 80053; 84145; 87637; 96361; 96374; 96375; 99283; 71045; 80164; 83605; 83735; 85025; J0780; J1885

== ENCOUNTER 2023-05-13 17:36 | Emergency (ER) | payer MEDICARE, SELFPAY ==
[2023-05-13 17:37] VITALS: BP 138/105; PULSE 84; RESP 20; TEMP 36.8; O2SAT 99
--- NOTE | 2023-05-13 17:54 | NUR.NOTE ---
Nursing Note: Pt was wanded by security for safety. Belongings placed in room 1 behavioral health lockers. Pt remains calm and cooperative with process. Pt has food and drink available.
--- NOTE | 2023-05-13 18:05 | W.ED.GENAD ---
Discharge Plan Disposition Patient Disposition: Home Condition: Stable Discharge Details Clinical Impression: Anxiety, Depression Primary Care Provider: Unknown,Unknown ED Provider: Zach Samaniego Home Meds and New Rx's Prescriptions: New olanzapine 7.5 mg tablet 7.5 mg PO DAILY Qty: 30 1RF escitalopram oxalate 5 mg tablet 5 mg PO DAILY Qty: 30 1RF divalproex [Depakote] 250 mg tablet,delayed release (DR/EC) 750 mg PO BID 30 Days Qty: 180 1RF No Action divalproex [Depakote] 250 mg tablet,delayed release (DR/EC) 750 mg PO BID 30 Days Qty: 180 0RF hydroxyzine HCl 50 mg Tablet 25 mg PO HS Qty: 30 0RF olanzapine 7.5 mg tablet 7.5 mg PO DAILY Qty: 30 0RF escitalopram oxalate 5 mg tablet 5 mg PO DAILY Qty: 30 0RF Discharge Instructions Instructions: Depression (ED), Anxiety (ED) Additional Instructions: Please follow-up with [facility], please return to the emergency department for any worsening symptoms. Medical Decision Making 43-year-old male history of bipolar depression, presents with worsening anxiety, depression in the setting of running out of medications, calm cooperative however does appear mildly anxious, tearful. Hemodynamically stable afebrile nontoxic no signs of trauma no signs of intoxication. Patient denies SI HI or hallucinations. No delusional thinking at this time. Patient will benefit from evaluation with [facility] and human services for follow-up care. Will start patient back on his home medications. 19: 47 patient evaluated by [facility]. Was deemed safe for discharge home, will be checking in with [facility] and a care bed will be arranged for him on an outpatient basis. HPI General Date/Time Provider Initiated Documentation: 05/13/23 17:37. HPI Narrative: 43-year-old male history of bipolar, depression presents with anxiety, depression, panic attacks in the setting of running out of his medications. Denies SI denies HI denies hallucinations Related Data Home Medications Medication Instructions Recorded Confirmed divalproex 250 mg tablet,delayed 750 mg (3 x 250 mg) PO BID 30 days 03/24/23 05/13/23 release (Depakote) #180 tabs escitalopram oxalate 5 mg tablet 5 mg PO DAILY #30 tabs 03/24/23 05/13/23 hydroxyzine HCl 50 mg tablet 25 mg (1/2 x 50 mg) PO HS #30 tabs 03/24/23 05/13/23 olanzapine 7.5 mg tablet 7.5 mg PO DAILY #30 tabs 03/24/23 05/13/23 divalproex 250 mg tablet,delayed 750 mg (3 x 250 mg) PO BID 30 days 05/13/23 release (Depakote) #180 tabs escitalopram oxalate 5 mg tablet 5 mg PO DAILY #30 tabs 05/13/23 olanzapine 7.5 mg tablet 7.5 mg PO DAILY #30 tabs 05/13/23 Previous Rx's Medication Instructions Recorded divalproex 250 mg tablet,delayed 750 mg (3 x 250 mg) PO BID 30 days 03/24/23 release (Depakote) #180 tabs escitalopram oxalate 5 mg tablet 5 mg PO DAILY #30 tabs 03/24/23 hydroxyzine HCl 50 mg tablet 25 mg (1/2 x 50 mg) PO HS #30 tabs 03/24/23 olanzapine 7.5 mg tablet 7.5 mg PO DAILY #30 tabs 03/24/23 divalproex 250 mg tablet,delayed 750 mg (3 x 250 mg) PO BID 30 days 05/13/23 release (Depakote) #180 tabs escitalopram oxalate 5 mg tablet 5 mg PO DAILY #30 tabs 05/13/23 olanzapine 7.5 mg tablet 7.5 mg PO DAILY #30 tabs 05/13/23 Allergies Allergy/AdvReac Type Severity Reaction Status Date / Time No Known Allergies Allergy Unverified 05/13/23 17:52 General Stated Complaint: PsychEval MARVEL: 2 Review of Systems Narrative: Review of Systems Constitutional: negative Eyes: negative ENT: negative Cardiovascular: negative Respiratory: negative Gastrointestinal: negative : negative Musculoskeletal: negative Skin: negative Neurologic: negative Psych: Anxiety, panic attacks, depression PFSH All Active Problems (Updated 05/13/23 @ 19:49 by Zach Samaniego MD) Depression (Chronic) Anxiety (Chronic) Bipolar 2 disorder (Acute) Depression (Chronic) Anxiety (Chronic) Social History Smoking/Tobacco Use Status: Current every day Tobacco Type: cigarettes Smoking risk assessment performed?: Yes Drug use: Occasionally Substance use type: marijuana Do you feel safe at home: Yes Do you feel safe in your relationship?: Yes Exam Narrative Exam Narrative: Physical Examination General: alert, awake, cooperative, resting comfortably, no acute distress HEENT: normocephalic, atraumatic; PERRL, EOM intact, conjunctiva normal; no nasal discharge; moist mucous membranes, oral and pharyngeal mucosa normal, tolerating secretions Neck: supple, trachea midline; full ROM Chest: normal to inspection Respiratory: normal respiratory effort, speaking in full sentences Skin: no lesions, rashes or trauma appreciated Neuro: AAOx3, normal speech, moving all extremities Psych: Calm, cooperative, appropriate, does appear anxious and mildly tearful, denies SI denies HI denies hallucinations Course Vital Signs Vital signs: Vital Signs Temperature 36.8 C 05/13/23 17:37 Pulse 84 05/13/23 17:37 Respiratory Rate 20 05/13/23 17:37 Blood Pressure 138/105 H 05/13/23 17:37 Pulse Oximetry 99 05/13/23 17:37 Temperature 36.8 C 05/13/23 17:37 Temperature Source Oral 05/13/23 17:37 Pulse 84 05/13/23 17:37 Respiratory Rate 20 05/13/23 17:37 Respiratory Effort Normal 05/13/23 17:44 Blood Pressure 138/105 H 05/13/23 17:37 Blood Pressure Position Sitting 05/13/23 17:37 Pulse Oximetry 99 05/13/23 17:37 Oxygen Delivery Method Room Air 05/13/23 17:37 Oxygen Flow Rate 0 05/13/23 17:37
[2023-05-13] MEDS: Escitalopram 10 MG TAB 5 MG PO (18:29)
[2023-05-13] MEDS: DIVALPROEX 500 MG, DIVALPROEX 250 MG 750 MG PO (18:30)
--- NOTE | 2023-05-14 01:56 | PDOC.MHCN ---
Date of service: 05/13/23 Time of Service: 18:18 PHQ-9 Over the last 2 weeks, how often have you been bothered by any of the following problems? 1. Little interest or pleasure in doing things: not at all 2. Feeling down, depressed, or hopeless: more than half the days 3. Trouble falling or staying asleep, or sleeping too much: nearly every day 4. Feeling tired or having little energy: not at all 5. Poor appetite or overeating: more than half the days 6. Feeling bad about yourself - or that you are a failure or have let yourself and your family down: not at all 7. Trouble concentrating on things, such as reading the newspaper or watching television: not at all 8. Moving or speaking so slowly that other people could have noticed? - Or the opposite - being so fidgety or restless that you have been moving around a lot more than usual: nearly every day 9. Thoughts that you would be better off or of hurting yourself in some way: several days Total score: 11 If you checked off any problems, how difficult have these problems made it for you to do your work, take care of things at home, or get along with other people?: not difficult at all Source: Developed by Drs. Edward Valladares, Smiley Clark, See Jones and colleagues, with an educational sarah from [email or web address]. Suicide Severity Rate CSSRS Have you wished you were or wished you could go to sleep and not wake up?: Yes Have you actually had any thoughts of killing yourself?: No CSSRS3 Have you ever done anything, started to do anything or prepared to do anything to end your life?: Yes CSSRS4 Was this within the past three months?: No Screening Score Total Score: 4 Screening: Positive Mental Health Emergency Note Release [facility] release signed:: Yes Reason for Visit In the last 2 weeks has the pt presented for ES prior to today?: No Non Suicidal Self Injury Current: No Safety Risk/Harm to Self or Others Current Ideation to Harm Self or Others: No Asssessment/Mental Status Appearance: Unremarkable Attitude: Cooperative Behavior: Unremarkable Speech: Normal Affect: Normal and Cogruent with mood Mood: Sad, Depressed and Anxious Thought process: Unremarkable Hallucinations: No evidence Delusions: No evidence Attention: Unremarkable Perception: Not impaired Orientation: Fully orientated Memory: Intact Insight: Good Judgement: Good Neurovegetative Symptoms Sleep: Decrease Appetitie: No change Interests: Decrease Energy: Decrease Libido: Not applicable Substance Use: Do you use nicotine?: Yes Have you used substances in the last 7 days?: yes, AL- 7 days ago THC-7 days ago Cigarettes- today Impression Client presented into [facility] after having trouble the past few day and having fleeting thoughts of SI. Client's appetite has increased in the last few months causing a weight gain. client's appearance was clean. Client informed this administrative underwriter that he is trying to stop smoking THC and drinking alcohol at this time his last usage for both was a week ago client does currently still smoke cigarettes but is also trying to cut down on that. Client reports that he does not do anything for most of the day and finds himself fidgety and restless and unable to calm his anxiety. Client reports that he is not set up with the primary care physician and has not been taking his medications due to not being able to get a current prescription. At this time client reports that he has no friends and his only support system is his mother and his brother. Client reports that he is depressed and has occasional thoughts of wanting to kill himself but does not have a plan intent to act on these thoughts. Client does have access to means in the form of a knife that he keeps locked up. Plan/Disposition Recommended Disposition: Crisis bed, facility contacted. Status of Crisis Bed acceptance: Pending review. Reports/communication Outcome discussed with: ED/Personnel
== END 2023-05-13 19:57 | disposition home or self-care (01) ==
PROVIDERS: Emergency Provider Emergency Medicine
DX: F41.8 Other specified anxiety disorders; F31.9 Bipolar disorder, unspecified; F41.0 Panic disorder [episodic paroxysmal anxiety]
CPT/HCPCS: 00123; 96127; 99283; 99284

== ENCOUNTER 2023-05-16 12:41 | Emergency (ER) | payer MEDICARE, SELFPAY ==
[2023-05-16 12:43] VITALS: BP 160/95; PULSE 74; RESP 20; TEMP 37.2; O2SAT 99
--- NOTE | 2023-05-16 12:46 | NUR.NOTE ---
Nursing Note: Wardrobe Custodian called and spoke with survey and mapping technician. to confirm if the patients medications were there and ready to be picked up. Confirmed that they are and provider notified.
[2023-05-16] MEDS: hydrOXYzine HCL 25 MG TAB 50 MG PO (13:05)
[2023-05-16] MEDS: OLANZapine 5 MG TAB 7.5 MG PO (13:06)
--- NOTE | 2023-05-16 13:10 | W.ED.GENAD ---
Discharge Plan Disposition Patient Disposition: Home Discharge Details Clinical Impression: Medication refill, Anxiety, Depression Primary Care Provider: Unknown,Unknown ED Provider: Ant Henning Home Meds and New Rx's Prescriptions: Continued olanzapine 7.5 mg tablet 7.5 mg PO DAILY Qty: 30 1RF escitalopram oxalate 5 mg tablet 5 mg PO DAILY Qty: 30 1RF divalproex [Depakote] 250 mg tablet,delayed release (DR/EC) 750 mg PO BID 30 Days Qty: 180 1RF divalproex [Depakote] 250 mg tablet,delayed release (DR/EC) 750 mg PO BID 30 Days Qty: 180 0RF hydroxyzine HCl 50 mg Tablet 25 mg PO HS Qty: 30 0RF olanzapine 7.5 mg tablet 7.5 mg PO DAILY Qty: 30 0RF escitalopram oxalate 5 mg tablet 5 mg PO DAILY Qty: 30 0RF Discharge Instructions Instructions: Depression (ED), Anxiety (ED) Additional Instructions: Please continue to follow-up with [facility] and your normal prescriber of your meds for further refills. We were able to verify that all your meds are available at [facility] and please take as prescribed. If you have any new or significant worsening symptoms feel free to return the emergency department for reassessment otherwise follow-up with your primary care provider as needed. [facility] [[facility] Discharge Data Discharge Date/Time-TO BE ENTERED AT DEPARTURE: 05/16/23 13:19 Medical Decision Making Patient presenting to the emergency department for chief complaint of medication refill. Patient states that he is depressed, not sleeping well, and has been out of his psychiatric meds. He was seen a couple days ago and had his escitalopram and olanzapine prescribed him but the pharmacy told him they would not have the olanzapine for couple days. Patient states he has been taking his other medications but still having some increase of symptoms. Patient states he has been following up with his safety plan and touching base with [facility] as previously arranged, denies any homicidal or suicidal ideations, denies any changes in medical condition. Patient is obviously anxious and does have depressive statements but I do not feel that patient is imminently at risk of self-harm. Was able to call and speak to the pharmacy who now does have patient's medications. He was given his daily medications here prior to discharge and patient states that he will go immediately and supervisor opening and picking his meds otherwise. After discussion of diagnosis and plan of care patient has no further needs, questions, or concerns and states clear understanding to return to the emergency department for any worsening symptoms. This documentation was generated using [employer] system, please disregard any oddities of phrase or misspellings. Medical Records Medical records reviewed: Yes I reviewed the patient's medical records. Medical records narrative: Reviewed previous emergency department visit HPI General Mode of arrival: ambulatory. Date/Time Provider Initiated Documentation: 05/16/23 12:41. Limitations to Documentation: no limitations. Information obtained by: patient, RN notes reviewed and old records reviewed. History of Present Illness 43 year old M presents to the emergency department with the chief complaint of Medication refill, anxiety and depression, Patient started experiencing this week(s) Patient notes no other symptoms.. Patient did receive the following treatments prior to arrival, none Related Data Home Medications Medication Instructions Recorded Confirmed divalproex 250 mg tablet,delayed 750 mg (3 x 250 mg) PO BID 30 days 03/24/23 05/16/23 release (Depakote) #180 tabs escitalopram oxalate 5 mg tablet 5 mg PO DAILY #30 tabs 03/24/23 05/16/23 hydroxyzine HCl 50 mg tablet 25 mg (1/2 x 50 mg) PO HS #30 tabs 03/24/23 05/16/23 olanzapine 7.5 mg tablet 7.5 mg PO DAILY #30 tabs 03/24/23 05/16/23 divalproex 250 mg tablet,delayed 750 mg (3 x 250 mg) PO BID 30 days 05/13/23 05/16/23 release (Depakote) #180 tabs escitalopram oxalate 5 mg tablet 5 mg PO DAILY #30 tabs 05/13/23 05/16/23 olanzapine 7.5 mg tablet 7.5 mg PO DAILY #30 tabs 05/13/23 05/16/23 Previous Rx's Medication Instructions Recorded divalproex 250 mg tablet,delayed 750 mg (3 x 250 mg) PO BID 30 days 03/24/23 release (Depakote) #180 tabs escitalopram oxalate 5 mg tablet 5 mg PO DAILY #30 tabs 03/24/23 hydroxyzine HCl 50 mg tablet 25 mg (1/2 x 50 mg) PO HS #30 tabs 03/24/23 olanzapine 7.5 mg tablet 7.5 mg PO DAILY #30 tabs 03/24/23 divalproex 250 mg tablet,delayed 750 mg (3 x 250 mg) PO BID 30 days 05/13/23 release (Depakote) #180 tabs escitalopram oxalate 5 mg tablet 5 mg PO DAILY #30 tabs 05/13/23 olanzapine 7.5 mg tablet 7.5 mg PO DAILY #30 tabs 05/13/23 Allergies Allergy/AdvReac Type Severity Reaction Status Date / Time No Known Allergies Allergy Unverified 05/16/23 12:51 General Stated Complaint: RX Refill MARVEL: 5 Review of Systems Cardiovascular Cardiovascular: Denies chest pain and Denies dyspnea Respiratory Respiratory: Denies dyspnea Psychiatric Psychiatric: Reports anxiety, Reports depression, Reports hopelessness, Reports panic attacks, Denies homicidal ideation and Denies suicidal ideation PFSH All Active Problems Medication refill (Acute) Depression (Chronic) Anxiety (Chronic) Bipolar 2 disorder (Acute) Depression (Chronic) Anxiety (Chronic) Social History Smoking/Tobacco Use Status: Current every day Tobacco Type: cigarettes Smoking risk assessment performed?: Yes Drug use: Occasionally Substance use type: marijuana Do you feel safe at home: Yes Do you feel safe in your relationship?: Yes Exam Const General: cooperative, no acute distress and not ill appearing Orientation: alert, awake and oriented x3 HENMT Mouth: moist mucous membranes Resp Effort & Inspection: normal respiratory effort, able to speak in complete sentences and no respiratory distress Skin General skin exam: no rashes or lesions noted Neuro General: patient alert, patient awake, patient oriented x3, moves all extremities and no focal motor deficits Course Vital Signs Vital signs: Vital Signs Temperature 37.2 C 05/16/23 12:43 Pulse 74 05/16/23 12:43 Respiratory Rate 20 05/16/23 12:43 Blood Pressure 160/95 H 05/16/23 12:43 Pulse Oximetry 99 05/16/23 12:43 Temperature 37.2 C 05/16/23 12:43 Temperature Source Skin 05/16/23 12:43 Pulse 74 05/16/23 12:43 Respiratory Rate 20 05/16/23 12:43 Blood Pressure 160/95 H 05/16/23 12:43 Blood Pressure Position Sitting 05/16/23 12:43 Pulse Oximetry 99 05/16/23 12:43 Oxygen Delivery Method Room Air 05/16/23 12:43 Oxygen Flow Rate 0 05/16/23 12:43 Pain Level 0 05/16/23 12:43
== END 2023-05-16 13:19 | disposition home or self-care (01) ==
LOC: ER 13:24
PROVIDERS: Emergency Provider Nurse Practitioner Family
DX: F41.8 Other specified anxiety disorders (principal); Z76.0 Encounter for issue of repeat prescription
CPT/HCPCS: 99283; 99284

== ENCOUNTER 2023-06-21 22:20 | Emergency (ER) | payer MEDICARE, SELFPAY ==
[2023-06-21 22:23] VITALS: BP 164/110; PULSE 87; RESP 16; TEMP 36.7; O2SAT 96
--- NOTE | 2023-06-21 22:30 | W.ED.GENAD ---
HPI General Stated Complaint: PsychEval Mode of arrival: EMS. MARVEL: 2 Date/Time Provider Initiated Documentation: 06/21/23 22:29. Limitations to Documentation: no limitations. Information obtained by: patient. HPI Narrative: 43yo M with hx depression & anxiety presenting for medication refill. Reports he ran out of his medications 4-5 days ago and hasn't been able to take them. Has had worsening depression since then, passive thoughts of self harm but no plan. Prior SA via overdose. No plans or intent to overdose today. No HI/AH/VH. He is otherwise in his usual state of health with no physical complaints. Related Data Home Medications Medication Instructions Recorded Confirmed divalproex 250 mg tablet,delayed 750 mg (3 x 250 mg) PO BID 30 days 03/24/23 06/21/23 release (Depakote) #180 tabs escitalopram oxalate 5 mg tablet 5 mg PO DAILY #30 tabs 03/24/23 06/21/23 hydroxyzine HCl 50 mg tablet 25 mg (1/2 x 50 mg) PO HS #30 tabs 03/24/23 06/21/23 olanzapine 7.5 mg tablet 7.5 mg PO DAILY #30 tabs 03/24/23 06/21/23 divalproex 250 mg tablet,delayed 750 mg (3 x 250 mg) PO BID 30 days 05/13/23 06/21/23 release (Depakote) #180 tabs escitalopram oxalate 5 mg tablet 5 mg PO DAILY #30 tabs 05/13/23 06/21/23 olanzapine 7.5 mg tablet 7.5 mg PO DAILY #30 tabs 05/13/23 06/21/23 paliperidone 6 mg tablet,extended mg PO 06/21/23 release 24 hr Previous Rx's Medication Instructions Recorded divalproex 250 mg tablet,delayed 750 mg (3 x 250 mg) PO BID 30 days 03/24/23 release (Depakote) #180 tabs escitalopram oxalate 5 mg tablet 5 mg PO DAILY #30 tabs 03/24/23 hydroxyzine HCl 50 mg tablet 25 mg (1/2 x 50 mg) PO HS #30 tabs 03/24/23 olanzapine 7.5 mg tablet 7.5 mg PO DAILY #30 tabs 03/24/23 divalproex 250 mg tablet,delayed 750 mg (3 x 250 mg) PO BID 30 days 05/13/23 release (Depakote) #180 tabs escitalopram oxalate 5 mg tablet 5 mg PO DAILY #30 tabs 05/13/23 olanzapine 7.5 mg tablet 7.5 mg PO DAILY #30 tabs 05/13/23 Allergies Allergy/AdvReac Type Severity Reaction Status Date / Time No Known Allergies Allergy Unverified 06/21/23 22:32 Review of Systems Narrative: see HPI PFSH All Active Problems (Updated 06/22/23 @ 00:25 by Tami Wilder MD) Medication refill (Acute) Bipolar 2 disorder (Acute) Depression (Chronic) Anxiety (Chronic) Social History Smoking/Tobacco Use Status: Current every day Tobacco Type: cigarettes Smoking risk assessment performed?: Yes Alcohol Intake: current Alcohol Intake frequency: holidays/special occasions only Drug use: Occasionally Substance use type: marijuana Housing: house Do you feel safe at home: Yes Do you feel safe in your relationship?: Yes Exam Narrative Exam Narrative: General: Alert, well appearing, well nourished, in no acute distress. Head: Normocephalic, atraumatic Neck: Trachea midline, ?Neck supple. Cardiac: ?RRR, no murmurs appreciated Resp: No respiratory distress. CTAB. Abd: ?Soft, non-distended, nontender Extremities: ?No deformities.? No peripheral edema. Neurologic: GCS 15. ? Moves all extremities freely against gravity Psych: Calm, cooperative.? Well groomed.? Mood sad, affect congruent.? Speech with normal volume, rate, rythym and tone. Linear and goal directed.? SI with no plan. Denies HI/AH/VH. ? Does not appear to be responding to internal stimuli. Course Vital Signs Vital signs: Vital Signs Temperature 36.7 C 06/21/23 22:23 Pulse 87 06/21/23 22:23 Respiratory Rate 16 06/21/23 22:23 Blood Pressure 164/110 H 06/21/23 22:23 Pulse Oximetry 96 06/21/23 22:23 Temperature 36.7 C 06/21/23 22:23 Temperature Source Oral 06/21/23 22:23 Pulse 87 06/21/23 22:23 Respiratory Rate 16 06/21/23 22:23 Blood Pressure 164/110 H 06/21/23 22:23 Pulse Oximetry 96 06/21/23 22:23 Oxygen Delivery Method Room Air 06/21/23 22:23 Oxygen Flow Rate 0 06/21/23 22:23 Medical Decision Making 43yo M with hx depression & anxiety presenting for medication refill.; reports he ran out of his medications 4-5 days ago and hasn't been able to take them. Had an appointment with his prescriber but had to cancel it as his family was ill. Reports passive SI, no plan, feels safe to go home and states he has good supports. Medications reviewed and he was given a dose of the ones he had missed here in the ED. [facility] spoke with patient, also have no acute concerns for suicidality. [facility] records reviewed and his last visit here was just over 30 days ago for medication refill, he was given a 30 day prescription at that time. He was medicated here. He was instructed to call his prescriber today to followup on this visit and to discuss a bridge prescription until he is able to be seen. I told the patient that the ED cannot continue to manage his routine medications for him and that it is crucial that he follows up with his mental health clinicians. I asked him to check in with [facility] tomorrow as well. He verbalized understanding of these instructions. Discharged home; discharge instructions and return precautions were reviewed with patient who verbalized understanding. All questions were answered and he is in agreement with the plan. Quality:SDOH Health Related Social Needs: No Data to Display Discharge Plan Disposition Patient Disposition: Home Condition: Good Discharge Details Chief Complaint: PsychEval Clinical Impression: Medication refill, Depression Primary Care Provider: Unknown,Unknown ED Provider: Tami Wilder Home Meds and New Rx's Prescriptions: No Action olanzapine 7.5 mg tablet 7.5 mg PO DAILY Qty: 30 1RF escitalopram oxalate 5 mg tablet 5 mg PO DAILY Qty: 30 1RF divalproex [Depakote] 250 mg tablet,delayed release (DR/EC) 750 mg PO BID 30 Days Qty: 180 1RF paliperidone 6 mg tablet extended release 24hr PO divalproex [Depakote] 250 mg tablet,delayed release (DR/EC) 750 mg PO BID 30 Days Qty: 180 0RF hydroxyzine HCl 50 mg Tablet 25 mg PO HS Qty: 30 0RF olanzapine 7.5 mg tablet 7.5 mg PO DAILY Qty: 30 0RF escitalopram oxalate 5 mg tablet 5 mg PO DAILY Qty: 30 0RF Discharge Instructions Instructions: Depression (ED) Additional Instructions: Call your mental health clinician today to ask for refills on your medications. Make sure you schedule and keep your next appointment. Return to the emergency department for new or worsening symptoms including if you have worsening thoughts of self harm or if you feel unsafe.
[2023-06-21] MEDS: Divalproex Sodium 250 MG TAB.ER.24H 750 MG PO (23:36)
[2023-06-21] MEDS: Escitalopram 10 MG TAB 5 MG PO (23:39)
--- NOTE | 2023-06-21 23:49 | PDOC.MHCN_ITS ---
Date of service: 06/21/23 Time of Service: 23:42 Mental Health Emergency Note Release [facility] release signed:: Yes Reason for Visit Adam reports feeling down in the dumps due to being off his medications for the last three to four days. In the last 2 weeks has the pt presented for ES prior to today?: Unknown Client Information Client is: Adult Outpatient Well Housed: Yes Non Suicidal Self Injury Current: No History: No Safety Risk/Harm to Self or Others Current Ideation to Harm Self or Others: No Risk: Does risk to harm exist?: No Risk: N/A Duty to warn indicated: No Asssessment/Mental Status Appearance: Unremarkable Attitude: Cooperative Behavior: Unremarkable Speech: Normal Affect: Cogruent with mood Mood: Stressed, Depressed and Anxious Thought process: Goal directed Hallucinations: No evidence Delusions: No evidence Attention: Unremarkable Perception: Not impaired Orientation: Fully orientated Memory: Intact Insight: Fair Judgement: Fair Neurovegetative Symptoms Sleep: No change Appetitie: No change Interests: No change Energy: No change Libido: Not applicable Substance Use: Do you use nicotine?: No Have you used substances in the last 7 days?: No Additional Issues: Assaultive/Threatening Behavior: No Medical Concerns: No Client engaged in active self harm w/weapon: No Threatening to run away: No Child reported abuse/neglect: No Voluntarily presenting for services: Yes Domestic violence is a concern: No Extreme Psychosis or extreme behavior is present: No Impression Adam presented to [facility] due to missing his medications for the last four days. Adam reports he is feeling down in the dumps due to not being on his meds. Adam reports [facility] gave him his dose of medications and will be writing him a prescription to lemon picker tomorrow. Adam denies SI/HI/NSSI. This magnetic tape typewriter operator discussed with Adam about his two cancelled appointments today - Adam reports his entire family is sick and he did not want to get anyone at the agency sick so he did not come in.? This magnetic tape typewriter operator confirmed with provider, [facility] will write him a script and he will follow up with [facility] on the for his rescheduled appointment. Plan/Disposition Recommended Disposition: [facility] Services (med provider appointment ) [facility] Services: Therapy and Other. Plan: Adam will be discharged with follow up to see [facility] on 07/05/23. Person reported agreement to plan: Yes Reports/communication Outcome discussed with: ED/Personnel
== END 2023-06-22 00:46 | disposition home or self-care (01) ==
PROVIDERS: Emergency Provider Student in an Organized Health Care Education/Training Program
DX: F32.A Depression, unspecified (principal); F41.9 Anxiety disorder, unspecified
CPT/HCPCS: 00123; 99283

== ENCOUNTER 2025-02-03 20:08 | Emergency (ER) | payer MEDICARE, SELFPAY ==
[2025-02-03 20:08] VITALS: BP 157/105; PULSE 78; RESP 18; TEMP 36.8; O2SAT 99
--- NOTE | 2025-02-03 20:26 | W.ED.GENAD ---
Discharge Plan Discharge Details Chief Complaint: PsychEval Clinical Impression: Passive suicidal ideations, Bipolar 2 disorder Primary Care Provider: Unknown,Unknown ED Provider: Leonela Escobedo Home Meds and New Rx's Prescriptions: No Action olanzapine 7.5 mg tablet 7.5 mg PO DAILY Qty: 30 1RF escitalopram oxalate 5 mg tablet 5 mg PO DAILY Qty: 30 1RF divalproex [Depakote] 250 mg tablet,delayed release (DR/EC) 750 mg PO BID 30 Days Qty: 180 1RF paliperidone 6 mg tablet extended release 24hr 6 mg PO Rx Instructions: reports he stopped taking pill and started taking a shot of it every month trazodone 100 mg tablet 50 mg PO HS Patient Comments: TAKE 2 TABLETS BY MOUTH DAILY AT BEDTIME mirtazapine 15 mg tablet 15 mg PO DAILY hydroxyzine HCl 25 mg tablet 25 mg PO Q8H PRN Rx Instructions: He report he took up to 3 tabs daily, 1 every night HS and up to 2 more thru out the day when he was stressed Invega Sustenna 156 mg/mL syringe 156 mg IM Q30D divalproex [Depakote] 250 mg tablet,delayed release (DR/EC) 750 mg PO BID 30 Days Qty: 180 0RF hydroxyzine HCl 50 mg Tablet 25 mg PO HS Qty: 30 0RF olanzapine 7.5 mg tablet 7.5 mg PO DAILY Qty: 30 0RF escitalopram oxalate 5 mg tablet 5 mg PO DAILY Qty: 30 0RF HPI General Mode of arrival: EMS. Date/Time Provider Initiated Documentation: 02/03/25 20:16. Limitations to Documentation: no limitations. Information obtained by: patient, EMS and old records reviewed. HPI Narrative: This is a 44-year-old male patient with a history of bipolar, anxiety, presenting for evaluation with EMS for suicidal ideation. The patient reports that he started feeling suicidal this morning. He has had a number of life stressors including having to move 3 times in the last month. The patient states that he currently does not have power, and has not had any opportunity to bathe. He stopped taking his Depakote 2-1/2 months ago due to excessive weight gain. He does not currently have a primary care provider, and has run out of his trazodone about a month ago. Currently only taking hydroxyzine. The patient reports no suicide attempts recently nor specific plans for how he would harm himself. He has a history of attempt by overdose on Seroquel 10 years ago. States that he smokes 1 pack/day of cigarettes, has occasional alcoholic beverages, last drink yesterday with no reported withdrawal symptoms. Occasional marijuana use but no other illicit substances. He was evaluated by [facility] just prior to arrival at the facility, and is presenting for voluntary inpatient psychiatric placement. Related Data Home Medications ?Medication ?Instructions ?Recorded ?Confirmed divalproex 250 mg tablet,delayed 750 mg (3 x 250 mg) PO BID 30 days 03/24/23 02/03/25 release (Depakote) #180 tabs escitalopram oxalate 5 mg tablet 5 mg PO DAILY #30 tabs 03/24/23 02/03/25 hydroxyzine HCl 50 mg tablet 25 mg (1/2 x 50 mg) PO HS #30 tabs 03/24/23 02/03/25 olanzapine 7.5 mg tablet 7.5 mg PO DAILY #30 tabs 03/24/23 02/03/25 divalproex 250 mg tablet,delayed 750 mg (3 x 250 mg) PO BID 30 days 05/13/23 02/03/25 release (Depakote) #180 tabs escitalopram oxalate 5 mg tablet 5 mg PO DAILY #30 tabs 05/13/23 02/03/25 olanzapine 7.5 mg tablet 7.5 mg PO DAILY #30 tabs 05/13/23 02/03/25 paliperidone 6 mg tablet,extended 6 mg PO 06/21/23 release 24 hr hydroxyzine HCl 25 mg tablet 25 mg PO Q8H PRN 02/03/25 02/03/25 mirtazapine 15 mg tablet 15 mg PO DAILY 02/03/25 02/03/25 paliperidone palmitate 156 mg/mL 156 mg IM Q30D 02/03/25 02/03/25 intramuscular syringe (Invega Sustenna) trazodone 100 mg tablet 50 mg PO HS 02/03/25 02/03/25 Previous Rx's ?Medication ?Instructions ?Recorded divalproex 250 mg tablet,delayed 750 mg (3 x 250 mg) PO BID 30 days 03/24/23 release (Depakote) #180 tabs escitalopram oxalate 5 mg tablet 5 mg PO DAILY #30 tabs 03/24/23 hydroxyzine HCl 50 mg tablet 25 mg (1/2 x 50 mg) PO HS #30 tabs 03/24/23 olanzapine 7.5 mg tablet 7.5 mg PO DAILY #30 tabs 03/24/23 divalproex 250 mg tablet,delayed 750 mg (3 x 250 mg) PO BID 30 days 05/13/23 release (Depakote) #180 tabs escitalopram oxalate 5 mg tablet 5 mg PO DAILY #30 tabs 05/13/23 olanzapine 7.5 mg tablet 7.5 mg PO DAILY #30 tabs 05/13/23 Allergies Allergy/AdvReac Type Severity Reaction Status Date / Time No Known Allergies Allergy Unverified 06/21/23 22:32 General Stated Complaint: PsychEval MARVEL: 2 Exam Narrative Exam Narrative: Gen: Awake and alert, in no apparent distress HEENT: Non-icteric sclera Neck: Supple Lungs: No apparent respiratory distress, normal respiratory effort. Lung sounds clear and equal bilaterally CV: Appears well perfused, heart with regular rate and rhythm Abdomen: Non-distended, soft, nontender MSK: Moves 4 extremities without apparent limitation in ROM Skin: Visualized skin without rashes, cyanosis. Neuro: Normal Gait, no obvious focal deficits or facial asymmetry. Speaks in full, clear sentences. Psych: Appropriate for situation. Course Vital Signs Vital signs: Vital Signs Temperature 36.8 C 02/03/25 20:08 Pulse 78 02/03/25 20:08 Respiratory Rate 18 02/03/25 20:08 Blood Pressure 157/105 H 02/03/25 20:08 Pulse Oximetry 99 02/03/25 20:08 Temperature 36.8 C 02/03/25 20:08 Temperature Source Oral 02/03/25 20:08 Pulse 78 02/03/25 20:08 Respiratory Rate 18 02/03/25 20:08 Blood Pressure 157/105 H 02/03/25 20:08 Pulse Oximetry 99 02/03/25 20:08 Oxygen Delivery Method Room Air 02/03/25 20:08 Oxygen Flow Rate 0 02/03/25 20:08 Pain Level 5 02/03/25 20:08 Medical Decision Making This is a 44-year-old male patient presenting for evaluation of suicidal ideation. My differential includes but is not limited to primary psychiatric disturbance, especially given the history of bipolar and the recent lack of medications for management of same. No evidence for acute intoxication or withdrawal syndromes. The patient is not diabetic, and has no medical concerns such as fever, chest pain, or poor p.o. intake to suggest cardiac problems, hypoglycemia, metabolic or electrolyte derangements. The patient is voluntary, and meets criteria for smart medical clearance without laboratory evaluations. He would benefit from a telepsychiatry consult for medication management and recommendations, which was placed. I will obtain a urine drug screen for placement purposes. The patient was admitted to ED psych obs at 2027. I did order the home meds that he reports he was most recently taking. I signed out care of the patient to the oncoming provider prior to final disposition. While under my care he remained hemodynamically appropriate, calm, and comfortable. Leonela Escobedo MD [facility] All Active Problems (Updated 02/03/25 @ 23:13 by Leonela Escobedo MD) Passive suicidal ideations (Acute) Bipolar 2 disorder (Acute) Depression (Chronic) Anxiety (Chronic) Social History Smoking/Tobacco Use Status: Current every day Tobacco Type: cigarettes Smoking risk assessment performed?: Yes Alcohol Intake: current Alcohol Intake frequency: holidays/special occasions only Drug use: Occasionally Substance use type: marijuana Housing: house Do you feel safe at home: Yes Do you feel safe in your relationship?: Yes PAWSS Have you Been Recently Intoxicated or Drunk Within the Last 30 days?: No Have you Ever Experienced Previous Episodes of Alcohol Withdrawal?: No Have you ever Experienced Withdrawal Seizures?: No Have you ever Experienced Delirium Tremens(DT)s?: No Have you ever undergone Alcohol Rehabilitation Treatment (i.e, inpt ot outpatient treatment programs)?: No Have you ever Experienced Blackouts?: No Have you ever Combined Alcohol with other Downers within the last 90 days?: No Have you ever Combined Alcohol with any other Substance of Abuse during the last 90 days?: No Positive Blood Alcohol level on Presentation? [PCS.BAL]: No Evidence of Increased Autonomic Activity (i.e. HR>120, tremor, sweating, agitation, nausea)?: No Result: 0
[2025-02-03 20:31] LABS: Glucose Negative (Negative)
[2025-02-03 20:43] LABS: Cannabinoids THC Negative (Negative); METHADONE URINE SCREEN Negative (Negative)
[2025-02-03] MEDS: Nicotine 2 MG GUM CH (21:38)
[2025-02-03] MEDS: Mirtazapine 15 MG TAB PO (21:55)
[2025-02-03] MEDS: traZODone 50 MG TAB PO (21:55)
--- NOTE | 2025-02-03 23:13 | PDOC.MHCN ---
Date of service: 02/03/25 Time of Service: 18:45 PHQ-9 Over the last 2 weeks, how often have you been bothered by any of the following problems? 1. Little interest or pleasure in doing things: several days 2. Feeling down, depressed, or hopeless: nearly every day 3. Trouble falling or staying asleep, or sleeping too much: nearly every day 4. Feeling tired or having little energy: not at all 5. Poor appetite or overeating: not at all 6. Feeling bad about yourself - or that you are a failure or have let yourself and your family down: not at all 7. Trouble concentrating on things, such as reading the newspaper or watching television: not at all 8. Moving or speaking so slowly that other people could have noticed? - Or the opposite - being so fidgety or restless that you have been moving around a lot more than usual: not at all 9. Thoughts that you would be better off or of hurting yourself in some way: several days Total score: 8 If you checked off any problems, how difficult have these problems made it for you to do your work, take care of things at home, or get along with other people?: very difficult PHQ-9 Results: Positive Source: Developed by Drs. Edward Valladares, Smiley Clark, See Jones and colleagues, with an educational sarah from [employer]. Suicide Severity Rate CSSRS Have you wished you were or wished you could go to sleep and not wake up?: Yes Have you actually had any thoughts of killing yourself?: No CSSRS2 Have you been thinking about how you might do this?: No Have you had these thoughts and had some intention of acting on them?: No Have you started to work out or worked out the details of how to kill yourself? Do you intend to carry out this plan?: No CSSRS3 Have you ever done anything, started to do anything or prepared to do anything to end your life?: Yes CSSRS4 Was this within the past three months?: No Screening Score Total Score: 4 Screening: Positive Mental Health Emergency Note Release [facility] release signed:: Yes Reason for Visit The client is known to [facility] and currently receives services through the adult outpatient program, however per chart review has numerous missed appointments. Per the report of the client he has been hospitalized about 8 months ago voluntarily. Today the client calls 911 and reports that he is feeling depressed and suicidal. [facility] outreached to [facility] with a phone number and location. This senior technical writer and PSS Rui's respond in person. In the last 2 weeks has the pt presented for ES prior to today?: No Client Information Client is: Adult Outpatient Well Housed: Yes Non Suicidal Self Injury Current: No History: No Safety Risk/Harm to Self or Others Current Ideation to Harm Self or Others: Yes to self. (Client reports SI, however denies specific plan. Reports intent 10/21. ) Intent: yes, has intent. Plan: no.does not have a plan. History of suicide attempt: yes,history of suicide attempt reported. Details of previous suicide attempt: Overdose on Seroquel about 10 years ago Risk: Does risk to harm exist?: yes. Access to means: No. Risk: Moderate Risk Asssessment/Mental Status Appearance: Disheveled and Poor hygiene Attitude: Cooperative and Guarded Behavior: Unremarkable Speech: Soft Affect: Cogruent with mood Mood: Stressed, Depressed and Anxious Thought process: Unremarkable Hallucinations: No Delusions: No Attention: Poor concentration Perception: Not impaired Orientation: Fully orientated Memory: Intact Insight: Fair Judgement: Fair Neurovegetative Symptoms Sleep: No change Appetitie: No change Interests: Decrease Energy: Decrease Libido: Not applicable Substance Use: Do you use nicotine?: No Have you used substances in the last 7 days?: No Additional Issues: Assaultive/Threatening Behavior: No Medical Concerns: No Client engaged in active self harm w/weapon: No Threatening to run away: No Child reported abuse/neglect: No Voluntarily presenting for services: Yes Domestic violence is a concern: No Extreme Psychosis or extreme behavior is present: No Impression The client is a single 44 y/o male that resides in a home with his mother, step father, and another individual. The client is currently disabled. The client identifies as male and uses he/ him pronouns. All screening tools are completed and all under represented categories are honored during the assessment. The client presents standing at the end of his driveway and is disheveled in appearance. The client reports that he is under a great deal of stress as he has moved four times within the last 6 months and has not been able to shower in the last 4 moths. The client reports that he is struggling with an increase in depression and suicidal ideations. The client denies specific plan, however rates his intent 10/21. The client reports that he has been unable to schedule an appointment with his medication provider due to moving a lot and is currently out of a lot of his medications. The client reports that he does not feel like he can keep himself safe and is wanting to go to the hospital to await for inpatient treatment. Plan/Disposition Recommended Disposition: Hospitalization (Sending referrals ) No and Other. Plan: The client will be transported by [employer] [employer] to [facility] ED to seek voluntary treatment. Referrals will be faxed to , [facility], , and [facility] transfer station. The client will be re-assessed daily until placement is secured or he is able to be safety planned back to the community. Person reported agreement to plan: Yes Reports/communication Outcome discussed with: ED/Personnel (Verbal given to [facility] staff)
--- NOTE | 2025-02-03 23:19 | NUR.NOTE ---
Faxed Dena @ [facility] the face sheet, labs, and Emergency Dept. note @ [phone]
--- NOTE | 2025-02-04 01:25 | NUR.NOTE ---
Paperwork faxed to the [facility] @ [phone]
--- NOTE | 2025-02-04 07:53 | ED.PROG1_ITS ---
Date of service: 02/04/25 Time of Service: 07:53 Psychiatric Border Handoff Update Brief Story: Patient signed out to me pending voluntary bed search. Thoughts of self-harm and apparently has not been taking most of his normal psych medications. Will continue to monitor until safe disposition found. Status: voluntary Able to leave: would need physician/SHELLI and crisis evaluation prior to leaving Mediation Reconciliation performed: Yes Code Status ordered: Yes Diet ordered: Yes Discharge Plan Discharge Details Chief Complaint: PsychEval Clinical Impression: Passive suicidal ideations, Bipolar 2 disorder Primary Care Provider: Unknown,Unknown ED Provider: Adam Ayers [place] Meds and New Rx's Prescriptions: No Action olanzapine 7.5 mg tablet 7.5 mg PO DAILY Qty: 30 1RF escitalopram oxalate 5 mg tablet 5 mg PO DAILY Qty: 30 1RF divalproex [Depakote] 250 mg tablet,delayed release (DR/EC) 750 mg PO BID 30 Days Qty: 180 1RF paliperidone 6 mg tablet extended release 24hr 6 mg PO Rx Instructions: reports he stopped taking pill and started taking a shot of it every month trazodone 100 mg tablet 50 mg PO HS Patient Comments: TAKE 2 TABLETS BY MOUTH DAILY AT BEDTIME mirtazapine 15 mg tablet 15 mg PO DAILY hydroxyzine HCl 25 mg tablet 25 mg PO Q8H PRN Rx Instructions: He report he took up to 3 tabs daily, 1 every night HS and up to 2 more thru out the day when he was stressed Invega Sustenna 156 mg/mL syringe 156 mg IM Q30D divalproex [Depakote] 250 mg tablet,delayed release (DR/EC) 750 mg PO BID 30 Days Qty: 180 0RF hydroxyzine HCl 50 mg Tablet 25 mg PO HS Qty: 30 0RF olanzapine 7.5 mg tablet 7.5 mg PO DAILY Qty: 30 0RF escitalopram oxalate 5 mg tablet 5 mg PO DAILY Qty: 30 0RF
[2025-02-04] MEDS: Nicotine 14 MG/24 HR PATCH TD (08:28)
[2025-02-04 08:46] VITALS: BP 136/99; PULSE 110; RESP 16; TEMP 36.7; O2SAT 97
--- NOTE | 2025-02-04 09:58 | CMSP_ITS ---
Date of service: 02/04/25 Time of Service: 09:58 Care Management Safety Plan Status Status: Voluntary Reason for Wait Reason for Wait: Inpatient Admission Safety Plan Safety Plan: VOLUNTARY FOR INPATIENT PSYCHIATRIC STABILIZATION.? Patient is appropriate in all interactions since arriving at [facility]; Pt has demonstrated appropriate coping and communication skills, has articulated his needs and concerns and is fully engaged during staff interactions. Safety plan has been established with patient, and care team, to adhere to patient goals, identify restrictions based on behavioral status, address nutrition, and determine allowed personal belongings, tools for hygiene and personal care. Determine level of activity including ambulation, level of supervision, visitors, and determine privileges based on behaviors and level of engagement by pt. VOLUNTARY SAFETY PLAN: 1. Will remain on suicide precautions, in paper clothes 2. Will remain in Zone B under direct supervision of one-on-one staff at all times provided by [employer]; SEVERIANO, COMMUNITY SERVICE COORDINATOR senior portfolio analyst. 3. May have paper cups, plates, finger foods as well as a cardboard spoon with which to eat meals. 4. Follow [facility] Management of the Admitted Behavioral Health Patient policy. 5. Shower available in Zone B without restriction. 6. Personal belongings-soft items permitted at RN discretion. 7. Visitors-none at this time. 8. Activities: soft cart items, hospital tablets (Netflix/Hardy+/music) approved per RN discretion. 9.? Bathroom available in Zone B without restriction. 10. Phone: limited to [facility] cordless phone at RN discretion. Due to VOLUNTARY status, if patient wishes to leave [facility], staff will contact [facility] Crisis Screener ([phone]) and Legal Financial Specialist ([phone]) as soon as possible. In the event of elopement, notify [facility] Police ([phone]). Patient is currently voluntarily at [facility] and seeking inpatient admission when a bed becomes available. [facility] Frontline Rug Repairer will continue seeking placement. Please contact the Legal Financial Specialist ([phone]) and [facility] Rug Repairer ([phone]) for any needed changes in the Safety Plan. Safety plan has been provided to interdepartmental care team.
--- NOTE | 2025-02-04 09:58 | PDOC.CMSAFE ---
Date of service: 02/04/25 Time of Service: 09:58 Care Management Safety Plan Status Status: Voluntary Reason for Wait Reason for Wait: Inpatient Admission Safety Plan Safety Plan: VOLUNTARY FOR INPATIENT PSYCHIATRIC STABILIZATION.? Patient is appropriate in all interactions since arriving at [facility]; Pt has demonstrated appropriate coping and communication skills, has articulated his needs and concerns and is fully engaged during staff interactions. Safety plan has been established with patient, and care team, to adhere to patient goals, identify restrictions based on behavioral status, address nutrition, and determine allowed personal belongings, tools for hygiene and personal care. Determine level of activity including ambulation, level of supervision, visitors, and determine privileges based on behaviors and level of engagement by pt. VOLUNTARY SAFETY PLAN: 1. Will remain on suicide precautions, in paper clothes 2. Will remain in Zone B under direct supervision of one-on-one staff at all times provided by [employer]; SEVERIANO, PIANO BENCH ASSEMBLER vocational technical education director. 3. May have paper cups, plates, finger foods as well as a cardboard spoon with which to eat meals. 4. Follow [facility] Management of the Admitted Behavioral Health Patient policy. 5. Shower available in Zone B without restriction. 6. Personal belongings-soft items permitted at RN discretion. 7. Visitors-none at this time. 8. Activities: soft cart items, hospital tablets (Netflix/[place]+/music) approved per RN discretion. 9.? Bathroom available in Zone B without restriction. 10. Phone: limited to [facility] cordless phone at RN discretion. Due to VOLUNTARY status, if patient wishes to leave [facility], staff will contact [facility] Crisis Screener ([phone]) and Rn Examiner ([phone]) as soon as possible. In the event of elopement, notify [facility] Police ([phone]). Patient is currently voluntarily at [facility] and seeking inpatient admission when a bed becomes available. [facility] Frontline Project Manager Process Development will continue seeking placement. Please contact the Rn Examiner ([phone]) and [facility] Project Manager Process Development ([phone]) for any needed changes in the Safety Plan. Safety plan has been provided to interdepartmental care team.
--- NOTE | 2025-02-04 09:59 | CMPROGNOTE_ITS ---
Date of service: 02/04/25 Time of Service: 09:59 Care Management Progress Note Progress Note Text Progress Note Text: Adam is a 44 year old man who presented to the ED with SI and bipolar disorder. He has moved several times recently and has not had access to shower facilities,situations he identifies as leading to increased stress. Adam is seeking voluntary psychiatric hospitalization. Referrals have been sent to , [facility], [facility] and . Adam was reassessed this morning and is feeling much better. He was able to be discharged home on a safety plan. CM coordinated transportation with [facility] using an authorization form as Adam does not have Medicaid. Social Determinants of Health Screening Will the Patient Participate in the Screening?: Declined to provide
--- NOTE | 2025-02-04 20:59 | MHPN_ITS ---
Date of service: 02/04/25 Time of Service: 10:06 Mental Health Emergency Note Release [facility] release signed:: Yes Reason for Visit The client is known to [facility] and currently receives services through the adult outpatient program, however per chart review has numerous missed appointments. Per the report of the client he has been hospitalized about 8 months ago voluntarily. Last night the client calls 911 and reports that he is feeling depressed and suicidal. [facility] outreached to [facility] with a phone number and location. Last night the client was transported to [facility] ED via EMS to seek voluntary inpatient treatment. This senior underwriter meets with the client via telehealth for re-assessment. In the last 2 weeks has the pt presented for ES prior to today?: No Impression The client is a single 44 y/o male that resides in a home with his mother, step father, and another individual. The client is currently disabled. The client identifies as male and uses he/ him pronouns. All screening tools are completed and all under represented categories are honored during the assessment. The client presents laying down in hospital bed dressed in proper paper hospital attire. The client reports that they are doing good this morning stating that they were able to have a shower last night. The client denies SI as well as intent and plan. The client initially states that he does not feel safe to return home and then states that he does not know. The client reports good appetite and sleep. The client will be discharged home with outpatient follow- up's. Resources Re[facility] reviewed and given:: [facility] and [facility] Plan/Disposition Recommended Disposition: [facility] Services [facility] Services: Therapy. Plan: The client will be discharged home on a safety plan. The client agrees to check- in phone call tomorrow at 12p. This senior underwriter will complete therapy and case management referral. The client is also provided with contact information for 8. Person reported agreement to plan: Yes Reports/communication Outcome discussed with: ED/Personnel (Verbal given to [facility] zone b staff)
== END 2025-02-04 13:54 | disposition home or self-care (01) ==
PROVIDERS: Emergency Medicine; Emergency Provider Emergency Medicine
DX: F31.81 Bipolar II disorder (principal); R45.851 Suicidal ideations; Z59.89 Other problems related to housing and economic circumstances; Z91.128 Patient's intentional underdosing of medication regimen for other reason
CPT/HCPCS: 99284; 99285; 00123; 80307; 96127; G0378; 81003